=== PATIENT | male | born 1960 | race Caucasian/White ===

== ENCOUNTER 2019-04-03 01:16 | Emergency (ER) | payer MEDICAID, OTHER, SELFPAY ==
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
[2019-04-03] MEDS ORDERED: Sodium Chloride 0.9% 1000 ML 1,000 ML IV STA (01:47)
[2019-04-03] MEDS ORDERED: Sodium Chloride 0.9% 1000 ML 1,000 ML ONE (02:12)
[2019-04-03 02:34] LABS: BASOPHIL % 0.2 % (0.0-0.4); Basophil (Absolute #) 0.03 (0-0.4); Eosinophil % 0.3 % (0.00-5.0); Eosinophil (Absolute #) 0.04 (0-0.5); Hematocrit 40.9 % (42-50); Lymphocyte (Absolute #) 2.47 (1.0-4.6); Lymphocytes % 18.3 % (24.0-44.0); Mean Cell Volume 93.6 fl (78-100); Mean Corpuscular Hgb Concent. 34.2 g/dl (32-36); Mean Platelet Volume 10.5 fl (6-9.5); Monocyte (Absolute #) 0.97 (0.0-1.3); Monocytes % 7.2 % (0.0-12.0); Platelet Count 269 K/mm3 (150-450); Red Blood Count 4.37 M/mm3 (4.1-5.6); Red Cell Distribution Width 13.2 % (11.5-14.0); White Blood Count 13.5 K/mm3 (4.0-10.5)
[2019-04-03 02:52] LABS: ANION GAP 18.4 MEQ/L (5-15); BLOOD UREA NITROGEN 10 mg/dL (9-20); CHLORIDE 104 mmol/L (98-107); Calcium 8.7 mg/dL (8.4-10.2); Carbon Dioxide 21 mmol/L (22-30); Glucose 118 mg/dL (74-106); Potassium 3.6 mmol/L (3.5-5.1); SODIUM 139 mmol/L (137-145)
[2019-04-03 03:09] VITALS: O2SAT 98
[2019-04-03] MEDS ORDERED: Adacel Vial IM ONE ×2 (03:09→03:12)
[2019-04-03 03:15] VITALS: BP 125/93; PULSE 96
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
== END 2019-04-03 03:28 | disposition home or self-care (01) ==
LOC: ED 01:16
DX: S01.01XA Laceration without foreign body of scalp, initial encounter (principal); S09.90XA Unspecified injury of head, initial encounter; V98.8XXA Other specified transport accidents, initial encounter; S80.212A Abrasion, left knee, initial encounter; S80.211A Abrasion, right knee, initial encounter
CPT/HCPCS: 12001; 36000; 36415; 70450; 72125; 80048; 85025; 90471; 90715; 96360; 99284

== ENCOUNTER 2019-04-11 08:34 | Emergency (ER) | payer MEDICAID ==
[2019-04-11 08:54] VITALS: BP 142/92; PULSE 62; O2SAT 96
--- NOTE | 2019-04-11 08:56 | ERPHSYRPT ---
- History of Present Illness Time Seen by Provider: 04/11/19 08:45 Source: patient Exam Limitations: no limitations Patient Subjective Stated Complaint: pt here to have amie removed today, he states they where placed on 04/03. Triage Nursing Assessment: pt has amie placed to left side of head. wound in tact in tact with amie in place, no drainage noted Allergies/Adverse Reactions: penicillin G Allergy (Intermediate, Verified 04/11/19 08:54) Rash Home Medications: No Reportable Medications [No Reported Medications] 04/11/19 [History] Hx Tetanus, Diphtheria Vaccination/Date Given: No Hx Influenza Vaccination/Date Given: No Hx Pneumococcal Vaccination/Date Given: No Immunizations Up to Date: No - Past Medical History Pertinent Past Medical History: Yes Neurological History: No Pertinent History ENT History: No Pertinent History Cardiac History: Hypertension Respiratory History: No Pertinent History, Tuberculosis, Other Endocrine Medical History: No Pertinent History Musculoskeletal History: Arthritis, Degenerative Disk Disease GI Medical History: No Pertinent History History: No Pertinent History Psycho-Social History: No Pertinent History Male Reproductive Disorders: No Pertinent History Other Medical History: back pain. tb is dormant - Past Surgical History Past Surgical History: Yes Neuro Surgical History: No Pertinent History Cardiac: No Pertinent History Respiratory: No Pertinent History Gastrointestinal: No Pertinent History Genitourinary: No Pertinent History Musculoskeletal: Orthopedic Surgery Male Surgical History: No Pertinent History Other Surgical History: lt thumb - Social History Smoking Status: Current every day smoker How long have you smoked: yrs Exposure to second hand smoke: Yes Drug Use: none Patient Lives Alone: Yes - Nursing Vital Signs Nursing Vital Signs: Initial Vital Signs Temperature 97.0 F 04/11/19 08:44 Pulse Rate 62 04/11/19 08:44 Respiratory Rate 16 04/11/19 08:44 Blood Pressure 142/92 04/11/19 08:44 O2 Sat by Pulse Oximetry 96 04/11/19 08:44 Pain Scale Pain Intensity 0 - Physical Exam SpO2: 96 - Course Nursing assessment & vital signs reviewed: Yes - Progress Progress: unchanged Progress Note: 04/11/19 08:59 amie removed without problems,pt has been stable. Counseled pt/family regarding: diagnosis, need for follow-up - Departure Departure Disposition: Home Clinical Impression: Scalp laceration Qualifiers: Encounter type: initial encounter Qualified Code(s): S01.01XA - Laceration without foreign body of scalp, initial encounter Condition: Stable Critical Care Time: No Referrals: SHRAVAN OJEDA [Primary Care Provider] - Instructions: Laceration Repair With Amie (DC), Closed Head Injury (DC) Additional Instructions: Return if severe headaches, dizziness, vomiting, lethargy !
== END 2019-04-11 09:16 | disposition home or self-care (01) ==
LOC: ED 08:34
DX: S01.01XD Laceration without foreign body of scalp, subsequent encounter (principal)
CPT/HCPCS: 99283

== ENCOUNTER 2019-05-07 03:14 | Emergency (ER) | payer MEDICAID ==
--- NOTE | 2019-05-07 03:46 | ERPHSYRPT ---
- History of Present Illness Time Seen by Provider: 05/07/19 03:36 Source: patient Exam Limitations: no limitations Patient Subjective Stated Complaint: pt states he has been having pain in his rt upper arm for 2 days. rates 07/31. denies injury. Triage Nursing Assessment: pt alert and oriented, answers questions approp. pt ambulatory with steady gait ntoed. respirations nonlabored with lungs cta. cap refill and radial pulse to rt arm wnl. Physician History: 58-year-old white male with history of arthritis, degenerative disc disease, chronic back pain who has had tuberculosis which was treated in the past. Patient arrives with complaint of pain in his right arm and shoulder symptoms going on for 2 days he states he has pain with movement of the right shoulder and with flexing the biceps. He denies any injury is not short of breath he has no chest pain. Past medical history includes arthritis, degenerative disc disease, tuberculosis , chronic back pain. Past surgical history includes left thumb surgery. Social history positive for tobacco use denies alcohol or illicit drugs Occurred: days ago (2 days ago) Method of Injury: unknown Quality: constant, aching Severity of Pain-Max: moderate Severity of Pain-Current: moderate Extremities Pain Location: shoulder: right, arm: right Modifying Factors: Improves With: movement Associated Symptoms: none Allergies/Adverse Reactions: penicillin G Allergy (Intermediate, Verified 05/07/19 03:37) Rash Hx Tetanus, Diphtheria Vaccination/Date Given: Yes Hx Influenza Vaccination/Date Given: No Hx Pneumococcal Vaccination/Date Given: No Immunizations Up to Date: Yes - Review of Systems Constitutional: No Fever, No Chills Eyes: No Symptoms Ears, Nose, & Throat: No Symptoms Respiratory: No Cough, No Dyspnea Cardiac: No Chest Pain, No Edema, No Syncope Abdominal/Gastrointestinal: No Abdominal Pain, No Nausea, No Vomiting, No Diarrhea Genitourinary Symptoms: No Dysuria Musculoskeletal: Other (pain in right shoulder and right arm with movement of shoulder or right arm) Skin: No Symptoms, No Rash Neurological: No Dizziness, No Focal Weakness, No Sensory Changes Psychological: No Symptoms Endocrine: No Symptoms All Other Systems: Reviewed and Negative - Past Medical History Pertinent Past Medical History: Yes Neurological History: No Pertinent History ENT History: No Pertinent History Cardiac History: Hypertension Respiratory History: No Pertinent History, Tuberculosis, Other Endocrine Medical History: No Pertinent History Musculoskeletal History: Arthritis, Degenerative Disk Disease GI Medical History: No Pertinent History History: No Pertinent History Psycho-Social History: No Pertinent History Male Reproductive Disorders: No Pertinent History Other Medical History: back pain. tb is dormant - Past Surgical History Past Surgical History: Yes Neuro Surgical History: No Pertinent History Cardiac: No Pertinent History Respiratory: No Pertinent History Gastrointestinal: No Pertinent History Genitourinary: No Pertinent History Musculoskeletal: Orthopedic Surgery Male Surgical History: No Pertinent History Other Surgical History: lt thumb, cyst removed from back - Social History Smoking Status: Current every day smoker How long have you smoked: yrs Exposure to second hand smoke: Yes Drug Use: none Patient Lives Alone: Yes - Nursing Vital Signs Nursing Vital Signs: Initial Vital Signs Temperature 97.8 F 05/07/19 03:28 Pulse Rate 70 05/07/19 03:28 Respiratory Rate 16 05/07/19 03:28 Blood Pressure 156/100 05/07/19 03:28 O2 Sat by Pulse Oximetry 100 05/07/19 03:28 Pain Scale Pain Intensity 9 - Physical Exam General Appearance: mild distress, alert Eyes, Ears, Nose, Throat Exam: moist mucous membranes Neck Exam: non-tender, supple Cardiovascular/Respiratory Exam: chest non-tender, normal breath sounds, regular rate/rhythm, no respiratory distress Abdominal Exam: non-tender, No guarding Back Exam: normal inspection, No vertebral tenderness Shoulder Exam: No normal inspection (right shoulder tender with palpation laterally, decreased range of motion right shoulder secondary to pain, right upper arm tender with palpation laterally) Elbow/Forearm Exam: No normal inspection (pain right arm with movement of right elbow decreased range of motion right elbow) Wrist Exam: normal inspection, non-tender, no evidence of injury, normal ROM Hand Exam: normal inspection, non-tender, no evidence of injury, normal ROM Neuro/Tendon Exam: normal sensation, normal motor functions Mental Status Exam: alert, oriented x 3, cooperative Skin Exam: normal color, warm, dry SpO2 Interpretation: normal (100%) SpO2: 100 - Course Nursing assessment & vital signs reviewed: Yes - Radiology Exams Right Humerus X-ray Interpretation: Interpreted by me (no fractures no subluxation) Right Shoulder X-ray Interpretation: Interpreted by me (Arthritis humeral head no fractures no subluxation) Ordered Tests: Active Orders 24 hr Category Date Time Status Sling Application STAT Care 05/07/19 04:16 Active HUMERUS Stat Exams 05/07/19 03:41 Taken SHOULDER Stat Exams 05/07/19 03:41 Taken Medication Summary Discontinued Medications Generic Name Dose Route Start Last Admin Trade Name Taylor PRN Reason Stop Dose Admin Hydrocodone Bitart/Acetaminophen 2 tab 05/07/19 04:19 05/07/19 04:32 Wallace 5/325 Mg PO 05/07/19 04:20 2 tab SENT HOME W/ PATIENT ONE Administration Hydrocodone Bitart/Acetaminophen Confirm 05/07/19 04:27 Wallace 5/325 Mg Administered 05/07/19 04:28 Dose 2 tab .ROUTE .STK-MED ONE Ketorolac Tromethamine 60 mg 05/07/19 04:21 05/07/19 04:32 Toradol 30 Mg Injection IM 05/07/19 04:22 60 mg STAT ONE Administration Ketorolac Tromethamine Confirm 05/07/19 04:30 Toradol 30 Mg Injection Administered 05/07/19 04:31 Dose 60 mg .ROUTE .STK-MED ONE - Progress Progress: improved Progress Note: 05/07/19 04:20 Patient's x-ray right shoulder showed arthritis of the humeral head no subluxation or dislocation or fractures. X-ray right humerus no fractures no subluxation. Patient given Toradol 60 mg IM. Sling will be placed. Will write for Wallace for pain. Patient is to his right shoulder 24-48 hours followup with local physician Magalie as prescribed also can take Advil every 6 hours as needed. Return for acute distress or for severe symptoms. - Departure Departure Disposition: Home Clinical Impression: Right arm pain, Arthritis of right shoulder region Right shoulder pain Qualifiers: Chronicity: acute Qualified Code(s): M25.511 - Pain in right shoulder Condition: Fair Critical Care Time: No Referrals: DOCTOR,NO FAMILY [Primary Care Provider] - Additional Instructions: Return home. Ice to right shoulder 24-48 hours. May wear sling 48-72 hours. Followup with your family (list) you will need to call and arrange a followup appointment Magalie as prescribed. Advil every 6 hours as needed for pain. Return for acute distress or for severe symptoms Prescriptions: Hydrocodone/APAP 5-325 Tab^^^ [Wallace 5-325 Tablet^^^] 1 tab PO Q6HPRN PRN #10 tablet MDD 6 PRN Reason: right shoulder pain
[2019-05-07] MEDS ORDERED: NORCO 5/325 MG PO ONE (04:19)
[2019-05-07] MEDS ORDERED: TORAdol 30 mg Injection IM ONE (04:21)
[2019-05-07] MEDS ORDERED: NORCO 5/325 MG ONE (04:27)
[2019-05-07] MEDS ORDERED: TORAdol 30 mg Injection ONE (04:30)
[2019-05-07 04:39] VITALS: BP 148/84; PULSE 67
[2019-05-07 04:41] VITALS: O2SAT 100
--- NOTE | 2019-05-07 08:39 | XRAY ---
Indication: Pain. No known injury. Comparison: None 2 views of the right humerus demonstrates moderate AC degenerative arthropathy with inferior spurring, mild glenohumeral degenerative arthropathy with tiny subcortical cysts, and lateral epicondyle heterotopic ossifications. No other bony, articular, or soft tissue abnormalities.
--- NOTE | 2019-05-07 08:39 | XRAY ---
Indication: Pain. No known injury. Comparison: None 3 views of the right shoulder demonstrates moderate AC degenerative arthropathy with inferior spurring, mild glenohumeral degenerative arthropathy with tiny subcortical cysts, and multilevel thoracic endplate spurring. No other bony, articular, or soft tissue abnormalities.
== END 2019-05-07 04:55 | disposition home or self-care (01) ==
LOC: ED 03:14
DX: M79.601 Pain in right arm (principal); M19.011 Primary osteoarthritis, right shoulder; M25.511 Pain in right shoulder
CPT/HCPCS: 73030; 73060; 96372; 99284; J1885; A9270-GY

== ENCOUNTER 2019-12-31 16:25 | Emergency (ER) | payer MEDICAID, OTHER ==
[2019-12-31 16:46] VITALS: BP 159/103; PULSE 93; O2SAT 97
[2019-12-31] MEDS ORDERED: TORAdol 30 mg Injection IM ONE (16:55)
[2019-12-31] MEDS ORDERED: TORAdol 30 mg Injection ONE (17:51)
--- NOTE | 2019-12-31 18:15 | ERPHSYRPT ---
- History of Present Illness Time Seen by Provider: 12/31/19 16:45 Source: patient Exam Limitations: no limitations Patient Subjective Stated Complaint: Pt states that on 12/24/2019 he was walking down some stairs and was on a turn when it felt as if he popped his knee out of place, left knee and lower extremity is swollen, leg is orangish in color, pt states that it tingles like it is asleep Triage Nursing Assessment: Pt brought to the ER by a friend, pt walking with a limp, hypertensive, rates pain 10/10, left knee and lower leg swollen Physician History: Patient is a 59-year-old male presents to our ED for evaluation of left knee pain. Patient states that he twisted his left knee approximately 1 week ago. Patient felt his kneecap shift. Patient's knee has been sore for the past week. Patient describes knee swelling. Pain worse with weightbearing. Pain improved with rest. Pain is well localized. No radiation. No other injuries reported. Patient voices no other complaints at this time. Method of Injury: twisted Occurred: last week Quality: constant Severity of Pain-Max: moderate Severity of Pain-Current: moderate Lower Extremities Pain: knee: left Modifying Factors: Improves With: movement Associated Symptoms: popping sensation, No dizzy, No seizure Allergies/Adverse Reactions: penicillin G Allergy (Intermediate, Verified 12/31/19 16:46) Rash Home Medications: No Reportable Medications [No Reported Medications] 12/31/19 [History] Hx Tetanus, Diphtheria Vaccination/Date Given: Yes Hx Influenza Vaccination/Date Given: No Hx Pneumococcal Vaccination/Date Given: No - Review of Systems Constitutional: No Fever, No Chills Eyes: No Symptoms Ears, Nose, & Throat: No Symptoms Respiratory: No Symptoms, No Cough, No Dyspnea Cardiac: No Symptoms, No Chest Pain, No Edema, No Syncope Abdominal/Gastrointestinal: No Symptoms, No Abdominal Pain, No Nausea, No Vomiting, No Diarrhea Genitourinary Symptoms: No Symptoms, No Dysuria Musculoskeletal: No Symptoms, No Back Pain, No Neck Pain Skin: No Symptoms, No Rash Neurological: No Symptoms, No Dizziness, No Focal Weakness, No Sensory Changes Psychological: No Symptoms Endocrine: No Symptoms Hematologic/Lymphatic: No Symptoms Immunological/Allergic: No Symptoms All Other Systems: Reviewed and Negative - Past Medical History Pertinent Past Medical History: Yes Neurological History: No Pertinent History ENT History: No Pertinent History Cardiac History: Hypertension Respiratory History: No Pertinent History, Tuberculosis, Other Endocrine Medical History: No Pertinent History Musculoskeletal History: Arthritis, Degenerative Disk Disease GI Medical History: No Pertinent History History: No Pertinent History Psycho-Social History: No Pertinent History Male Reproductive Disorders: No Pertinent History Other Medical History: back pain. tb is dormant - Past Surgical History Past Surgical History: Yes Neuro Surgical History: No Pertinent History Cardiac: No Pertinent History Respiratory: No Pertinent History Gastrointestinal: No Pertinent History Genitourinary: No Pertinent History Musculoskeletal: Orthopedic Surgery Male Surgical History: No Pertinent History Other Surgical History: lt thumb, cyst removed from back - Social History Smoking Status: Current every day smoker How long have you smoked: yrs Exposure to second hand smoke: Yes Drug Use: none Patient Lives Alone: Yes - Nursing Vital Signs Nursing Vital Signs: Initial Vital Signs Temperature 97.8 F 12/31/19 16:34 Pulse Rate 93 H 12/31/19 16:34 Blood Pressure 159/103 12/31/19 16:34 O2 Sat by Pulse Oximetry 97 12/31/19 16:34 Pain Scale Pain Intensity 10 - Physical Exam General Appearance: alert Eyes, Ears, Nose, Throat Exam: moist mucous membranes Neck Exam: non-tender, supple Cardiovascular/Respiratory Exam: chest non-tender, normal breath sounds, regular rate/rhythm, no respiratory distress Gastrointestinal/Abdominal Exam: non-tender, guarding Back Exam: normal inspection, No vertebral tenderness Knees Exam: left knee: normal range of motion, deformity, pain, soft tissue tenderness (Left knee is swollen and tender to palpation mostly anteromedially. No open or draining lesions. Extremities neurovascular intact distally. Compartments are soft. PT DP pulse palpable.) DTR - Lower Extremities Exam: knee (R): 1+, knee (L): 1+ Neuro/Tendon Exam: normal sensation, normal motor functions Mental Status Exam: alert, oriented x 3, cooperative Skin Exam: normal color, warm, dry SpO2 Interpretation: normal SpO2: 97 O2 Delivery: Room Air - Course Nursing assessment & vital signs reviewed: Yes - Radiology Exams Knee X-ray Interpretation: Interpreted by me (No fractures or dislocations.) - Radiology Ultrasound Exam Venous Lower Extremity Ultrasound: negative (No DVT left lower extremity.) Ordered Tests: Active Orders 24 hr Category Date Time Status KNEE (3 VIEWS) Stat Exams 12/31/19 16:54 Taken VENOUS UNILAT/LIMITED EXTREMIT [US] Stat Exams 12/31/19 16:56 Ordered Medication Summary Discontinued Medications Generic Name Dose Route Start Last Admin Trade Name Taylor PRN Reason Stop Dose Admin Ketorolac Tromethamine 60 mg 12/31/19 16:55 12/31/19 17:54 Toradol 30 Mg Injection IM 12/31/19 16:56 60 mg STAT ONE Administration Ketorolac Tromethamine Confirm 12/31/19 17:51 Toradol 30 Mg Injection Administered 12/31/19 17:52 Dose 60 mg .ROUTE .STK-MED ONE - Progress Progress: improved Progress Note: 12/31/19 18:20 Patient reassessed. Pain improved. Crutches provided. Patient referred to orthopedic clinic. Patient follow-up with orthopedic clinic within 48 hours for reevaluation. Counseled pt/family regarding: diagnosis, need for follow-up, rad results - Departure Departure Disposition: Home Clinical Impression: Knee sprain Condition: Good Critical Care Time: No Referrals: DOCTOR,NO FAMILY [Primary Care Provider] - Additional Instructions: Discharge/Care Plan MARÍALIZZ KIM was seen on 12/31/19 in the Emergency Room. The patient was counseled regarding Diagnosis,Lab results, Imaging studies, need for follow up and when to return to the Emergency Room. Prescriptions given: Discharge Note I have spoken with the patient and/or caregivers. I have explained the patient' s condition, diagnosis and treatment plan based on the information available to me at this time. I have answered the patient's and/or caregiver's questions and addressed any concerns. The patient and/or caregivers have as good understanding of the patient's diagnosis, condition and treatment plan as can be expected at this point. The vital signs have been stable. The patient's condition is stable and appropriate for discharge from the emergency department. The patient will pursue further outpatient evaluation with the primary care physician or other designated or consulting physician as outlined in the discharge instructions. The patient and/or caregivers are agreeable to this plan of care and follow-up instructions have been explained in detail. The patient and/or caregivers have received these instruction. The patient/and or caregivers are aware that any significant change in condition or worsening of symptoms should prompt an immediate return to this or the closest emergency department or call 911. Outpatient Orders: Ortho Referral Time Frame: 1 Day, Location: ORTHO CLINIC
--- NOTE | 2020-01-01 08:47 | XRAY ---
Indication: Pain. Comparison: July 23, 2016. 3 views of the left knee demonstrates new tiny patella spurring and nonspecific effusion. Stable fabella. No other bony, articular, or soft tissue abnormalities.
--- NOTE | 2020-01-01 08:50 | XRAY ---
Indication: DVT. Two-dimensional sonogram and color Doppler imaging of the major venous vessels of the left leg was performed. Comparison: None No thrombus seen in the examined deep venous vessels of the left leg including greater saphenous vein. Veins demonstrate normal compressibility. Venous waveforms are normal with and without augmentation. Impression: Left leg negative for DVT. Comment: Preliminary report was given.
== END 2019-12-31 18:55 | disposition home or self-care (01) ==
LOC: ED 16:25
DX: S83.92XA Sprain of unspecified site of left knee, initial encounter (principal); X50.0XXA Overexertion from strenuous movement or load, initial encounter; M25.562 Pain in left knee; M79.89 Other specified soft tissue disorders; I10 Essential (primary) hypertension
CPT/HCPCS: 73562; 93971; 96372; 99284; J1885

== ENCOUNTER 2021-11-10 07:48 | Emergency (ER) | payer OTHER ==
--- NOTE | 2021-11-10 07:59 | ERPHSYRPT ---
- History of Present Illness Time Seen by Provider: 11/10/21 07:59 Source: patient Exam Limitations: no limitations Physician History: This is a 61-year-old white male who is right-handed and presents with left elbow pain, swelling and redness that began approximately 2 days ago and has worsened. Patient denies any kind of trauma. He is not diabetic. He did not notice whether there was a insect bite. He has never had anything like this before. In addition he has left hand Dupuytren's contractures that he would like evaluated. Patient has not had any fevers or chills. Occurred: days ago (2) Quality: aching, throbbing Severity of Pain-Max: moderate Severity of Pain-Current: moderate Extremities Pain Location: elbow: left Modifying Factors: Improves With: movement Associated Symptoms: No chest discomfort, No chest pain, No fever, No vomiting Allergies/Adverse Reactions: penicillin G Allergy (Intermediate, Verified 11/10/21 07:53) Rash Home Medications: Lisinopril 20 mg [Zestril 20 MG] 1 tab PO DAILY 11/10/21 [History] Hx Tetanus, Diphtheria Vaccination/Date Given: Yes Hx Influenza Vaccination/Date Given: No Hx Pneumococcal Vaccination/Date Given: No Travel Risk - International Travel Have you traveled outside of the country in past 3 weeks: No - Coronavirus Screening Are you exhibiting any of the following symptoms?: No Close contact with a COVID-19 positive Pt in past 14-21 Days: No - Review of Systems Constitutional: No Symptoms Eyes: No Symptoms Ears, Nose, & Throat: No Symptoms Respiratory: No Symptoms Cardiac: No Symptoms Abdominal/Gastrointestinal: No Symptoms Genitourinary Symptoms: No Symptoms Musculoskeletal: Joint Pain (Left elbow) Skin: Other (Localized circular area of cellulitis left elbow) Neurological: No Symptoms Psychological: No Symptoms Endocrine: No Symptoms Hematologic/Lymphatic: No Symptoms Immunological/Allergic: No Symptoms All Other Systems: Reviewed and Negative - Past Medical History Pertinent Past Medical History: Yes Neurological History: No Pertinent History ENT History: No Pertinent History Cardiac History: Hypertension Respiratory History: No Pertinent History, Tuberculosis, Other Endocrine Medical History: No Pertinent History Musculoskeletal History: Arthritis, Degenerative Disk Disease GI Medical History: No Pertinent History History: No Pertinent History Psycho-Social History: No Pertinent History Male Reproductive Disorders: No Pertinent History Other Medical History: back pain. tb is dormant - Past Surgical History Past Surgical History: Yes Neuro Surgical History: No Pertinent History Cardiac: No Pertinent History Respiratory: No Pertinent History Gastrointestinal: No Pertinent History Genitourinary: No Pertinent History Musculoskeletal: Orthopedic Surgery Male Surgical History: No Pertinent History Other Surgical History: lt thumb, cyst removed from back - Social History Smoking Status: Current every day smoker How long have you smoked: yrs Exposure to second hand smoke: Yes Drug Use: none Patient Lives Alone: Yes - Nursing Vital Signs Nursing Vital Signs: Initial Vital Signs Temperature 98.0 F 11/10/21 07:54 Pulse Rate 107 H 11/10/21 07:54 Respiratory Rate 18 11/10/21 07:54 Blood Pressure 163/106 11/10/21 07:54 O2 Sat by Pulse Oximetry 99 11/10/21 07:54 Pain Scale Pain Intensity 10 - Physical Exam General Appearance: no apparent distress, alert, anxiety Eyes, Ears, Nose, Throat Exam: normal ENT inspection, moist mucous membranes Cardiovascular/Respiratory Exam: chest non-tender, no respiratory distress Abdominal Exam: non-tender Back Exam: normal inspection, normal range of motion, No CVA tenderness, No vertebral tenderness Shoulder Exam: normal inspection, non-tender, no evidence of injury, normal ROM Elbow/Forearm Exam: soft tissue tenderness, swelling (Redness and warmth) Wrist Exam: normal inspection, non-tender, no evidence of injury, normal ROM Hand Exam: no evidence of injury (Patient has Dupuytren's contractures.) Neuro/Tendon Exam: normal sensation, normal motor functions, responds to pain Mental Status Exam: alert, oriented x 3, cooperative Skin Exam: normal color, warm, dry SpO2 Interpretation: normal O2 Delivery: Room Air - Course Nursing assessment & vital signs reviewed: Yes Ordered Tests: Medication Summary Discontinued Medications Generic Name Dose Route Start Last Admin Trade Name Freq PRN Reason Stop Dose Admin Ceftriaxone Sodium 1,000 mg 11/10/21 08:13 Ceftriaxone Sodium 1000 Mg Inj Vial IM 11/10/21 08:14 STAT ONE Methylprednisolone Sodium 0 mg 11/10/21 08:13 Succinate 125 mg/ Sterile IM 11/10/21 08:14 Water 2 ml STAT ONE - Progress Progress: unchanged Counseled pt/family regarding: diagnosis, need for follow-up - Departure Departure Disposition: Home Clinical Impression: Dupuytren's contracture of left hand, Cellulitis of left elbow Condition: Stable Critical Care Time: No Referrals: SHIVAM ORTEZ [Primary Care Provider] - Follow up/PCP as directed (Left elbow cellulitis. Patient also wants hand contractures evaluated and managed) Additional Instructions: Take medication as prescribed. Follow-up this morning or tomorrow morning at [facility] clinic here at [facility] for further evaluation and management Prescriptions: Hydrocodone/APAP 5/325 [[place] 5/325 mg] 1 each PO Q8H PRN PRN #6 tablet MDD 3 PRN Reason: Pain Ciprofloxacin [Cipro 500 MG] 500 mg PO BID #14 tablet Prednisone 10 mg [Deltasone 10 mg] 10 mg PO TID #12 tablet
[2021-11-10 08:00] VITALS: BP 163/106; PULSE 107; O2SAT 99
[2021-11-10] MEDS ORDERED: solu-MEDROL 125 MG, Sterile H2O 10 ml 2 ML IM ONE ×2 (08:13)
[2021-11-10] MEDS ORDERED: Rocephin 1000 MG INJ IM ONE (08:13)
[2021-11-10] MEDS ORDERED: solu-MEDROL ONE (08:19)
[2021-11-10] MEDS ORDERED: Rocephin 1000 MG INJ ONE (08:19)
[2021-11-10] MEDS ORDERED: Sterile H2O 10 ml IJ ONE (08:20)
[2021-11-10] MEDS ORDERED: XYLOCAINE 1% HCL 20 ML MDV ONE (08:20)
== END 2021-11-10 08:44 | disposition home or self-care (01) ==
LOC: ED 07:48
DX: L03.114 Cellulitis of left upper limb (principal); M72.0 Palmar fascial fibromatosis [Dupuytren]; I10 Essential (primary) hypertension; Z72.0 Tobacco use; Z79.891 Long term (current) use of opiate analgesic; Z79.52 Long term (current) use of systemic steroids
CPT/HCPCS: 96372; 99283; J0696; J2930

== ENCOUNTER 2022-10-26 11:00 | Inpatient (IN) | payer OTHER ==
[2022-10-26] MEDS ORDERED: Hydromorphone 1 mg/ml Injection IV ONE ×2 (11:27→13:11)
[2022-10-26] MEDS ORDERED: PROTONIX 40 MG IV IV ONE ×2 (11:27→11:37)
[2022-10-26] MEDS ORDERED: Sodium Chloride 0.9% 1000 ML 1,000 ML IV STA (11:27)
[2022-10-26] MEDS ORDERED: Zofran 4 MG/2 ML VIAL IV ONE (11:27)
[2022-10-26] MEDS ORDERED: Zofran 4 MG/2 ML VIAL ONE (11:36)
[2022-10-26] MEDS ORDERED: Sodium Chloride 0.9% 1000 ML 1,000 ML ONE (11:37)
[2022-10-26] MEDS ORDERED: Hydromorphone 1 mg/ml Injection ONE ×2 (11:37→13:49)
[2022-10-26 11:45] LABS: BASOPHIL % 0.2 % (0.0-0.4); Basophil (Absolute #) 0.03 x10^3/uL (0-0.4); Eosinophil (Absolute #) 0 x10^3/uL (0-0.5); Hematocrit 48.5 % (42-50); Hemoglobin 16.4 g/dL (12.5-18.0); IMMATURE GRAN # 0.07 x10^3u/L (0.00-0.03); IMMATURE GRAN % 0.4 % (0.00-0.4); Lymphocyte (Absolute #) 1.28 x10^3/uL (1.0-4.6); Lymphocytes % 6.4 % (24.0-44.0); Mean Cell Volume 93.3 fL (78-100); Mean Corpuscular Hemoglobin 31.5 pg (26-32); Mean Corpuscular Hgb Concent. 33.8 g/dL (32-36); Mean Platelet Volume 9.8 fL (7.5-11.0); Monocyte (Absolute #) 0.88 x10^3/uL (0.0-1.3); Monocytes % 4.4 % (0.0-12.0); Neutrophil % 88.6 % (36.0-66.0); Platelet Count 341 x10^3/uL (150-450); Red Cell Distribution Width 12.3 % (11.5-14.0)
--- NOTE | 2022-10-26 11:55 | ERPHSYRPT ---
- History of Present Illness Time Seen by Provider: 10/26/22 11:04 Historian: patient Exam Limitations: no limitations Patient Subjective Stated Complaint: Pt c/o of upper epigastric pain that began last night in the lower sternum area, pt thought it was heartburn and it has continued to get worse today and has caused vomiting this morning Triage Nursing Assessment: Pt brought to the ER by his friend, hypertensive, rates pain in upper abdomen as 10/10, unable to get comfortable, denies pain in the back, last intake and bowel movement last night, vomited this morning, abdomen distended and rigid, denies numbness in legs or arms, pulses normal, skin n/w/d Physician History: 62 years old male with a history of hypertension, questionable history of GERD presented in the ER with chief complaint of epigastric pain started last but with gradually worsening this morning and more in the periumbilical area 10/10 intensity, nonradiating, associated with nausea and vomiting. No chest pain palpitations or shortness of breath. Timing/Duration: yesterday, gradual onset, worse Activities at Onset: rest Quality: sharpness Abdominal Pain Onset Location: epigastric, periumbilical Severity of Pain-Max: severe Severity of Pain-Current: severe Modifying Factors: Improves With: nothing Associated Symptoms: nausea, vomiting Previous symptoms: no prior history Allergies/Adverse Reactions: penicillin G Allergy (Intermediate, Verified 10/26/22 11:37) Rash Home Medications: Lisinopril 20 mg [Zestril 20 MG] 1 tab PO DAILY 11/10/21 [History] ALPRAZolam [Alprazolam] 0.5 mg PO DAILY 10/26/22 [History] Allopurinol 100 mg [Zyloprim 100 mg] 100 mg PO BID 10/26/22 [History] Chlorthalidone 25 mg PO DAILY 10/26/22 [History] Hydrocodone/Acetaminophen [Hydrocodone-Acetamin 7.5-325] 1 each PO BID 10/26/22 [History] Metoprolol Succinate 50 mg [Toprol Xl 50 MG] 50 mg PO DAILY 10/26/22 [History] Tamsulosin HCl 0.4 mg [Flomax 0.4 MG] 0.4 mg PO DAILY 01/05/23 [History] Hx Tetanus, Diphtheria Vaccination/Date Given: Yes Hx Influenza Vaccination/Date Given: No Hx Pneumococcal Vaccination/Date Given: No Travel Risk - International Travel Have you traveled outside of the country in past 3 weeks: No - Coronavirus Screening Are you exhibiting any of the following symptoms?: Yes Symptoms: Vomiting/Diarrhea Close contact with a COVID-19 positive Pt in past 14-21 Days: No - Vaccine Status Have you recieved a Covid-19 vaccination: Yes [employer]: Moderna - Vaccination Dates Date of 2cond Vaccination (if applicable): 03/05/2021 - Review of Systems Constitutional: No Symptoms Eyes: No Symptoms Ears, Nose, & Throat: No Symptoms Respiratory: No Symptoms Cardiac: No Symptoms Abdominal/Gastrointestinal: Abdominal Pain, Nausea, Vomiting Genitourinary Symptoms: No Symptoms Musculoskeletal: No Symptoms Skin: No Symptoms Neurological: No Symptoms Psychological: No Symptoms Endocrine: No Symptoms Hematologic/Lymphatic: No Symptoms Immunological/Allergic: No Symptoms - Past Medical History Pertinent Past Medical History: Yes Neurological History: No Pertinent History ENT History: No Pertinent History Cardiac History: Hypertension Respiratory History: No Pertinent History, Tuberculosis, Other Endocrine Medical History: No Pertinent History Musculoskeletal History: Arthritis, Degenerative Disk Disease GI Medical History: No Pertinent History History: No Pertinent History Psycho-Social History: No Pertinent History Male Reproductive Disorders: No Pertinent History Other Medical History: back pain. tb is dormant - Past Surgical History Past Surgical History: Yes Neuro Surgical History: No Pertinent History Cardiac: No Pertinent History Respiratory: No Pertinent History Gastrointestinal: No Pertinent History Genitourinary: No Pertinent History Musculoskeletal: Orthopedic Surgery Male Surgical History: No Pertinent History Other Surgical History: lt thumb, cyst removed from back - Social History Smoking Status: Current every day smoker How long have you smoked: yrs Exposure to second hand smoke: Yes Drug Use: none Patient Lives Alone: Yes - Nursing Vital Signs Nursing Vital Signs: Initial Vital Signs Temperature 97.1 F 10/26/22 11:02 Pulse Rate 99 H 10/26/22 11:02 Blood Pressure 189/130 10/26/22 11:02 O2 Sat by Pulse Oximetry 97 10/26/22 11:02 Pain Scale Pain Intensity 10 - Physical Exam General Appearance: no apparent distress, alert Eye Exam: PERRL/EOMI, eyes nml inspection Ears, Nose, Throat Exam: normal ENT inspection, TMs normal, pharynx normal, moist mucous membranes Neck Exam: normal inspection, non-tender, supple, full range of motion Respiratory Exam: normal breath sounds, lungs clear Cardiovascular Exam: regular rate/rhythm, normal heart sounds Gastrointestinal/Abdomen Exam: tenderness, distention (Generalized more in the upper abdomen), guarding (Upper abdomen), No normal bowel sounds (Hypoactive) Back Exam: normal inspection Extremity Exam: normal inspection, normal range of motion Neurologic Exam: alert, oriented x 3, normal mood/affect Skin Exam: normal color SpO2 Interpretation: normal SpO2: 97 O2 Delivery: Room Air - Course EKG Interpreted by Me: RATE (94), Sinus Rhythm, NORMAL AXIS, NORMAL INTERVALS, NORMAL QRS Ordered Tests: Active Orders 24 hr Category Date Time Status EKG-ER Only STAT Care 10/26/22 11:27 Active IV Insertion STAT Care 10/26/22 11:27 Active NPO (ED) STAT Care 10/26/22 11:27 Active ABDOMEN AND PELVIS W CONTRAST [CT] Stat Exams 10/26/22 13:38 Completed AMYLASE Stat Lab 10/26/22 11:45 Completed CBC W DIFF Stat Lab 10/26/22 11:45 Completed CMP Stat Lab 10/26/22 11:45 Completed LIPASE Stat Lab 10/26/22 11:45 Completed Lactic Acid Stat Lab 10/26/22 11:45 Completed TROPONIN Q4H Lab 10/26/22 11:45 Completed TROPONIN Q4H Lab 10/26/22 15:30 Ordered TROPONIN Q4H Lab 10/26/22 19:30 Ordered UA W/RFX UR CULTURE Stat Lab 10/26/22 11:27 Ordered Medication Summary Generic Name Dose Route Start Last Admin Trade Name Freq PRN Reason Stop Dose Admin Sodium Chloride 1,000 mls @ 125 mls/hr 10/26/22 14:00 10/26/22 14:03 Sodium Chloride 0.9% 1000 Ml IV 11/25/22 13:59 125 mls/hr .Q8H MITCHEL Administration Discontinued Medications Generic Name Dose Route Start Last Admin Trade Name Freq PRN Reason Stop Dose Admin Hydromorphone HCl 1 mg 10/26/22 11:27 10/26/22 11:51 Hydromorphone 1 Mg/1ml Inj 1 Mg/Ml Syringe IV 10/26/22 11:28 1 mg STAT ONE Administration Hydromorphone HCl Confirm 10/26/22 11:37 Hydromorphone 1 Mg/1ml Inj 1 Mg/Ml Syringe Administered 10/26/22 11:38 Dose 1 mg .ROUTE .STK-MED ONE Hydromorphone HCl 1 mg 10/26/22 13:11 10/26/22 13:52 Hydromorphone 1 Mg/1ml Inj 1 Mg/Ml Syringe IV 10/26/22 13:12 1 mg STAT ONE Administration Hydromorphone HCl Confirm 10/26/22 13:49 Hydromorphone 1 Mg/1ml Inj 1 Mg/Ml Syringe Administered 10/26/22 13:50 Dose 1 mg .ROUTE .STK-MED ONE Sodium Chloride 1,000 mls @ 999 mls/hr 10/26/22 11:27 10/26/22 13:12 Sodium Chloride 0.9% 1000 Ml IV 10/26/22 12:27 Infused .Q1H1M STA Infusion Sodium Chloride Confirm 10/26/22 11:37 Sodium Chloride 0.9% 1000 Ml Administered 10/26/22 11:38 Dose 1,000 mls @ ud .ROUTE .STK-MED ONE Ondansetron HCl 4 mg 10/26/22 11:27 10/26/22 11:42 Ondansetron Hcl 4 Mg/2 Ml Vial IV 10/26/22 11:28 4 mg STAT ONE Administration Ondansetron HCl Confirm 10/26/22 11:36 Ondansetron Hcl 4 Mg/2 Ml Vial Administered 10/26/22 11:37 Dose 4 mg .ROUTE .STK-MED ONE Pantoprazole Sodium 40 mg 10/26/22 11:27 10/26/22 11:47 Pantoprazole 40 Mg Vial IV 10/26/22 11:28 40 mg STAT ONE Administration Pantoprazole Sodium Confirm 10/26/22 11:37 Pantoprazole 40 Mg Vial Administered 10/26/22 11:38 Dose 40 mg IV .STK-MED ONE Lab/Rad Data: Laboratory Result Diagrams 10/26/22 11:45 10/26/22 11:45 Laboratory Results 10/26/22 10/26/22 10/26/22 Range/Units 11:45 11:45 11:45 WBC (4.0-10.5) x10^3/uL RBC (4.1-5.6) x10^6/uL Hgb (12.5-18.0) g/dL Hct (42-50) % MCV (78-100) fL MCH (26-32) pg MCHC (32-36) g/dL RDW (11.5-14.0) % Plt Count (150-450) x10^3/uL MPV (7.5-11.0) fL Gran % (36.0-66.0) % Immature Gran % (Auto) (0.00-0.4) % Nucleat RBC Rel Count (0.00-0.1) % Eos # (Auto) (0-0.5) x10^3/uL Immature Gran # (Auto) (0.00-0.03) x10^3u/L Absolute Lymphs (auto) (1.0-4.6) x10^3/uL Absolute Monos (auto) (0.0-1.3) x10^3/uL Absolute Nucleated RBC (0.00-0.01) x10^3u/L Lymphocytes % (24.0-44.0) % Monocytes % (0.0-12.0) % Eosinophils % (0.00-5.0) % Basophils % (0.0-0.4) % Absolute Granulocytes (1.4-6.9) x10^3/uL Basophils # (0-0.4) x10^3/uL Sodium 135 L (137-145) mmol/L Potassium 4.0 (3.5-5.1) mmol/L Chloride 101 (98-107) mmol/L Carbon Dioxide 26 (22-30) mmol/L Anion Gap 11.5 (5-15) MEQ/L BUN 16 (9-20) mg/dL Creatinine 1.18 (0.66-1.25) mg/dL Estimated GFR > 60.0 ML/MIN Glucose 158 H (74-106) mg/dL Lactic Acid 1.4 (0.4-2.0) Calcium 9.8 (8.4-10.2) mg/dL Total Bilirubin 1.60 H (0.2-1.3) mg/dL AST 38 (17-59) U/L ALT 35 (0-50) U/L Alkaline Phosphatase 113 (38-126) U/L Troponin I < 0.012 (0.000-0.034) ng/mL Serum Total Protein 8.4 H (6.3-8.2) g/dL Albumin 4.6 (3.5-5.0) g/dL Amylase 456 H (30-110) U/L Lipase 2368 H (23-300) U/L 10/26/22 Range/Units 11:45 WBC 20.0 H (4.0-10.5) x10^3/uL RBC 5.20 (4.1-5.6) x10^6/uL Hgb 16.4 (12.5-18.0) g/dL Hct 48.5 (42-50) % MCV 93.3 (78-100) fL MCH 31.5 (26-32) pg MCHC 33.8 (32-36) g/dL RDW 12.3 (11.5-14.0) % Plt Count 341 (150-450) x10^3/uL MPV 9.8 (7.5-11.0) fL Gran % 88.6 H (36.0-66.0) % Immature Gran % (Auto) 0.4 (0.00-0.4) % Nucleat RBC Rel Count 0.0 (0.00-0.1) % Eos # (Auto) 0 (0-0.5) x10^3/uL Immature Gran # (Auto) 0.07 H (0.00-0.03) x10^3u/L Absolute Lymphs (auto) 1.28 (1.0-4.6) x10^3/uL Absolute Monos (auto) 0.88 (0.0-1.3) x10^3/uL Absolute Nucleated RBC 0.00 (0.00-0.01) x10^3u/L Lymphocytes % 6.4 L (24.0-44.0) % Monocytes % 4.4 (0.0-12.0) % Eosinophils % 0.0 (0.00-5.0) % Basophils % 0.2 (0.0-0.4) % Absolute Granulocytes 17.70 H (1.4-6.9) x10^3/uL Basophils # 0.03 (0-0.4) x10^3/uL Sodium (137-145) mmol/L Potassium (3.5-5.1) mmol/L Chloride (98-107) mmol/L Carbon Dioxide (22-30) mmol/L Anion Gap (5-15) MEQ/L BUN (9-20) mg/dL Creatinine (0.66-1.25) mg/dL Estimated GFR ML/MIN Glucose (74-106) mg/dL Lactic Acid (0.4-2.0) Calcium (8.4-10.2) mg/dL Total Bilirubin (0.2-1.3) mg/dL AST (17-59) U/L ALT (0-50) U/L Alkaline Phosphatase (38-126) U/L Troponin I (0.000-0.034) ng/mL Serum Total Protein (6.3-8.2) g/dL Albumin (3.5-5.0) g/dL Amylase (30-110) U/L Lipase (23-300) U/L - Progress Progress: improved, pain not gone completely, re-examined Progress Note: 10/26/22 14:07 64-year-old with history of hypertension, GERD is evaluated for upper abdominal/epigastric pain started yesterday evening which got worse today and more in the periumbilical area moderate to severe sharp with associated nausea and vomiting. Patient is pretty tender on exam in the epigastric area with some guarding. I did ultrasound bedside on arrival with no appreciable AAA. Given symptomatic treatment along with fluids and feeling some improvement in pain but not completely resolved. Patient has a white count of 20 and chemistries showed elevated lipase in 2300s and amylase in 400s. Obtain CT abdomen pelvis with contrast which is positive for acute pancreatitis with very small amount of free fluid. EKG normal sinus rhythm with no ST elevation and negative troponins. CT abdomen pelvis otherwise negative for perforation, obstruction, AAA. Patient discussed with Dr. Mckinley, reviewed history, work-up, agreed with conservative management of acute pancreatitis with n.p.o., IV fluid and pain medication. Patient is admitted to the floor. Plan discussed with patient understand and agrees with it. Discussed with : Christian Will see patient in: hospital (observation) Counseled pt/family regarding: lab results, diagnosis, rad results - Departure Departure Disposition: Observation Clinical Impression: Acute pancreatitis Condition: Stable Critical Care Time: Yes Critical Care Time(excluding separately billable procedures): Critical 30-74 mins Referrals: SHIVAM ORTEZ [Primary Care Provider] - Follow up/PCP as directed
[2022-10-26 12:06] LABS: ALBUMIN 4.6 g/dL (3.5-5.0); ALKALINE PHOSPHATASE 113 U/L (38-126); AMYLASE 456 U/L (30-110); ANION GAP 11.5 MEQ/L (5-15); BLOOD UREA NITROGEN 16 mg/dL (9-20); CHLORIDE 101 mmol/L (98-107); Calcium 9.8 mg/dL (8.4-10.2); Carbon Dioxide 26 mmol/L (22-30); Creatinine 1 1.18 mg/dL (0.66-1.25); EST GLOMERULAR FILTRATION RATE > 60.0 ML/MIN; Glucose 158 mg/dL (74-106); SGOT/AST 38 U/L (17-59); SGPT/ALT 35 U/L (0-50); SODIUM 135 mmol/L (137-145); Total Protein 8.4 g/dL (6.3-8.2)
[2022-10-26 12:37] LABS: LIPASE 2368 U/L (23-300)
--- NOTE | 2022-10-26 14:00 | XRAY ---
Indication: Abdomen pain, nausea, and vomiting. Elevated amylase/lipase. Multiple contiguous axial images obtained through the abdomen and pelvis using 80 cc Isovue 370 contrast. Comparison: None Lung bases demonstrate moderate bilateral dependent atelectasis. Heart not enlarged. Small hiatal hernia. Noncontrasted stomach and bowel loops appear nonobstructed. Head of pancreas appears edematous with moderate peripancreatic stranding favoring acute pancreatitis. Small free fluid but no walled off fluid collection or free air. Both kidneys enhance and excrete with 7 mm right mid renal cortical cyst. Remaining liver, gallbladder, spleen, adrenal glands, kidneys, ureters, and bladder are unremarkable. Mild scattered aortoiliac calcifications. No AAA or pathologic retroperitoneal lymphadenopathy. Osseous structures intact with mild/moderate degenerative changes throughout the visualized spine. Small fatty right inguinal hernia. Impression: 1. CT findings favoring acute pancreatitis with small free fluid. 2. Chronic findings including small hiatal hernia, tiny right renal cyst, arteriosclerotic disease, small fatty right inguinal hernia, and degenerative spondylosis.
[2022-10-26] MEDS: Sodium Chloride 0.9% 1000 ML 1,000 ML IV SCH ×2 (14:03→20:29)
[2022-10-26 15:04] LABS: INFLUENZA A NEGATIVE (NEGATIVE); INFLUENZA B NEGATIVE (NEGATIVE); RESPIRATORY SYNCTIAL VIRUS NEGATIVE (Negative); SARS-CoV-2 Xpert Express NEGATIVE (NEGATIVE)
[2022-10-26 15:40] LABS: Appearance Clear (Clear); Bilirubin Negative (Negative); Blood Negative (Negative); Glucose Negative (Negative); Ketones Trace (Negative); Leukocyte Esterase Negative (Negative); Nitrite Negative (Negative); Protein,Urine Dip Negative (Negative); Specific Gravity >=1.030 (1.005-1.030); Urobilinogen 0.2 mg/dL (0.2)
[2022-10-26] MEDS ORDERED: DUONEB 0.5-3 MG/3 ml Neb IH PRN (15:55)
[2022-10-26] MEDS ORDERED: TYLENOL 325 MG PO PRN (15:55)
[2022-10-26 16:04] LABS: Bacteria None Seen /HPF (None Seen); Epithelial Cells None Seen /HPF (None Seen); Hyaline Casts 0-2 /LPF (0-2); RBC 0-2 /HPF (0-5); WBC 0-2 /HPF (0-5)
[2022-10-26] MEDS ORDERED: PROVENTIL 2.5 MG/3 ML NEB IH PRN (16:14)
[2022-10-26 16:23] LABS: ADD URINE CULTURE? NO (NO)
[2022-10-26] MEDS: Flomax 0.4 MG PO SCH (18:13)
[2022-10-26] MEDS: CHLORTHALIDONE PO SCH (18:13)
[2022-10-26] MEDS: ECOTRIN 81 MG PO SCH (18:13)
[2022-10-26] MEDS: Zestril 20 MG PO SCH (18:13)
[2022-10-26] MEDS: xanAX 0.5 MG PO SCH (18:52)
[2022-10-26] MEDS: NORCO 7.5/325 MG TAB PO SCH (20:29)
[2022-10-26] MEDS: ZYLOPRIM 100 MG PO SCH (20:29)
[2022-10-26] MEDS ORDERED: Toprol Xl 50 MG PO SCH (22:00)
[2022-10-26] MEDS: Hydromorphone 1 mg/ml Injection IV PRN (23:20)
[2022-10-26] MEDS: Zofran 4 MG/2 ML VIAL IV PRN (23:20)
[2022-10-27] MEDS: Sodium Chloride 0.9% 1000 ML 1,000 ML IV SCH ×3 (02:39→20:49)
[2022-10-27 06:13] LABS: Absolute Neutrophil Ct (ANC) 20.23 x10^3/uL (1.4-6.9); BASOPHIL % 0.2 % (0.0-0.4); Basophil (Absolute #) 0.05 x10^3/uL (0-0.4); Eosinophil (Absolute #) 0 x10^3/uL (0-0.5); Hematocrit 43.7 % (42-50); Hemoglobin 14.5 g/dL (12.5-18.0); IMMATURE GRAN # 0.13 x10^3u/L (0.00-0.03); IMMATURE GRAN % 0.5 % (0.00-0.4); Lymphocyte (Absolute #) 2.07 x10^3/uL (1.0-4.6); Lymphocytes % 8.5 % (24.0-44.0); Mean Cell Volume 93.6 fL (78-100); Mean Corpuscular Hgb Concent. 33.2 g/dL (32-36); Monocyte (Absolute #) 1.86 x10^3/uL (0.0-1.3); Monocytes % 7.6 % (0.0-12.0); Neutrophil % 83.2 % (36.0-66.0); Platelet Count 311 x10^3/uL (150-450); Red Blood Count 4.67 x10^6/uL (4.1-5.6); Red Cell Distribution Width 12.8 % (11.5-14.0); White Blood Count 24.3 x10^3/uL (4.0-10.5)
[2022-10-27] MEDS: Hydromorphone 1 mg/ml Injection IV PRN (06:18)
[2022-10-27] MEDS: Zofran 4 MG/2 ML VIAL IV PRN (06:18)
[2022-10-27 06:42] LABS: ALBUMIN 3.9 g/dL (3.5-5.0); ALKALINE PHOSPHATASE 90 U/L (38-126); ANION GAP 9.3 MEQ/L (5-15); BLOOD UREA NITROGEN 11 mg/dL (9-20); CHLORIDE 102 mmol/L (98-107); Calcium 8.5 mg/dL (8.4-10.2); Carbon Dioxide 24 mmol/L (22-30); Creatinine 1 1.04 mg/dL (0.66-1.25); EST GLOMERULAR FILTRATION RATE > 60.0 ML/MIN; Glucose 114 mg/dL (74-106); Potassium 4.3 mmol/L (3.5-5.1); SGOT/AST 29 U/L (17-59); SGPT/ALT 26 U/L (0-50); SODIUM 131 mmol/L (137-145); Total Protein 7.4 g/dL (6.3-8.2)
[2022-10-27 08:56] LABS: Slide Review 1 YES
[2022-10-27] MEDS: ZYLOPRIM 100 MG PO SCH ×2 (10:00→21:08)
[2022-10-27] MEDS: NORCO 7.5/325 MG TAB PO SCH ×2 (10:00→21:07)
[2022-10-27] MEDS: xanAX 0.5 MG PO SCH (10:01)
[2022-10-27] MEDS: ECOTRIN 81 MG PO SCH (10:02)
[2022-10-27] MEDS: Zestril 20 MG PO SCH (10:02)
[2022-10-27] MEDS: Flomax 0.4 MG PO SCH (10:02)
[2022-10-27] MEDS: ROCEPHIN 1 Gm-D5w 50 ml Bag** 1 G/50 ML IVPB IV SCH (10:03)
[2022-10-27] MEDS: CHLORTHALIDONE PO SCH (10:03)
[2022-10-27] MEDS: PROTONIX 40 MG IV IV SCH (10:03)
--- NOTE | 2022-10-27 10:56 | XRAY ---
Indication: Abdomen pain. Pancreatitis. Two-dimensional gallbladder sonogram performed. Comparison: None Pancreas not well-visualized due to overlying bowel gas. Gallbladder normally distended without gallstones, wall thickening, or pericholecystic fluid. Common bile duct measures 4.7 mm. No intrahepatic biliary distention. Remaining visualized liver and right kidney are sonographically unremarkable. Right kidney measures 9.6 cm in length. Impression: Nonvisualization pancreas. Remaining gallbladder sonogram is negative.
[2022-10-27] MEDS: FLAGYL 500 MG IVPB 500 MG/100 ML BAG IV SCH ×3 (12:27→23:00)
[2022-10-27] MEDS: Toprol Xl 100 MG PO SCH (21:08)
[2022-10-28] MEDS: Sodium Chloride 0.9% 1000 ML 1,000 ML IV SCH ×3 (04:07→21:57)
[2022-10-28] MEDS: FLAGYL 500 MG IVPB 500 MG/100 ML BAG IV SCH ×3 (05:39→18:07)
[2022-10-28] MEDS: Hydromorphone 1 mg/ml Injection IV PRN ×2 (05:45→16:22)
[2022-10-28 06:14] LABS: Hemoglobin 14.2 g/dL (12.5-18.0); Mean Cell Volume 92.7 fL (78-100); Mean Corpuscular Hemoglobin 31.3 pg (26-32); Mean Corpuscular Hgb Concent. 33.8 g/dL (32-36); Mean Platelet Volume 9.8 fL (7.5-11.0); Platelet Count 299 x10^3/uL (150-450); Red Blood Count 4.53 x10^6/uL (4.1-5.6); Red Cell Distribution Width 12.5 % (11.5-14.0); White Blood Count 20.3 x10^3/uL (4.0-10.5)
[2022-10-28 06:59] LABS: ALBUMIN 3.8 g/dL (3.5-5.0); ALKALINE PHOSPHATASE 92 U/L (38-126); ANION GAP 12.1 MEQ/L (5-15); BLOOD UREA NITROGEN 13 mg/dL (9-20); CHLORIDE 98 mmol/L (98-107); Calcium 8.4 mg/dL (8.4-10.2); Carbon Dioxide 24 mmol/L (22-30); Creatinine 1 1.08 mg/dL (0.66-1.25); EST GLOMERULAR FILTRATION RATE > 60.0 ML/MIN; Glucose 104 mg/dL (74-106); LIPASE 948 U/L (23-300); SGOT/AST 26 U/L (17-59); SGPT/ALT 21 U/L (0-50); SODIUM 129 mmol/L (137-145); Total Protein 7.4 g/dL (6.3-8.2)
[2022-10-28] MEDS: NORCO 7.5/325 MG TAB PO SCH ×2 (09:00→21:16)
[2022-10-28] MEDS: xanAX 0.5 MG PO SCH (09:00)
[2022-10-28] MEDS: ZYLOPRIM 100 MG PO SCH ×2 (09:04→21:17)
[2022-10-28] MEDS: Zestril 20 MG PO SCH (09:05)
[2022-10-28] MEDS: ECOTRIN 81 MG PO SCH (09:05)
[2022-10-28] MEDS: Flomax 0.4 MG PO SCH (09:05)
[2022-10-28] MEDS: CHLORTHALIDONE PO SCH (09:12)
[2022-10-28] MEDS: PROTONIX 40 MG IV IV SCH (09:13)
[2022-10-28] MEDS: ROCEPHIN 1 Gm-D5w 50 ml Bag** 1 G/50 ML IVPB IV SCH (09:17)
[2022-10-28] MEDS: Toprol Xl 100 MG PO SCH (21:16)
[2022-10-29] MEDS: FLAGYL 500 MG IVPB 500 MG/100 ML BAG IV SCH ×5 (00:30→23:18)
[2022-10-29] MEDS: Sodium Chloride 0.9% 1000 ML 1,000 ML IV SCH ×3 (06:02→15:58)
[2022-10-29 06:26] LABS: Hematocrit 41.9 % (42-50); Hemoglobin 14.2 g/dL (12.5-18.0); Mean Cell Volume 92.7 fL (78-100); Mean Corpuscular Hemoglobin 31.4 pg (26-32); Mean Corpuscular Hgb Concent. 33.9 g/dL (32-36); Mean Platelet Volume 10.1 fL (7.5-11.0); Platelet Count 313 x10^3/uL (150-450); Red Blood Count 4.52 x10^6/uL (4.1-5.6); Red Cell Distribution Width 12.4 % (11.5-14.0); White Blood Count 14.8 x10^3/uL (4.0-10.5)
[2022-10-29 07:01] LABS: ALBUMIN 3.7 g/dL (3.5-5.0); ALKALINE PHOSPHATASE 91 U/L (38-126); ANION GAP 11.6 MEQ/L (5-15); BLOOD UREA NITROGEN 13 mg/dL (9-20); CHLORIDE 98 mmol/L (98-107); Calcium 8.5 mg/dL (8.4-10.2); Carbon Dioxide 26 mmol/L (22-30); Creatinine 1 1.02 mg/dL (0.66-1.25); EST GLOMERULAR FILTRATION RATE > 60.0 ML/MIN; Glucose 120 mg/dL (74-106); LIPASE 346 U/L (23-300); Potassium 3.7 mmol/L (3.5-5.1); SGOT/AST 23 U/L (17-59); SGPT/ALT 19 U/L (0-50); SODIUM 132 mmol/L (137-145); Total Protein 7.3 g/dL (6.3-8.2)
[2022-10-29] MEDS: PROTONIX 40 MG IV IV SCH (08:27)
[2022-10-29] MEDS: NORCO 7.5/325 MG TAB PO SCH ×2 (08:27→21:10)
[2022-10-29] MEDS: xanAX 0.5 MG PO SCH (08:29)
[2022-10-29] MEDS: ROCEPHIN 1 Gm-D5w 50 ml Bag** 1 G/50 ML IVPB IV SCH (09:09)
[2022-10-29] MEDS: Zestril 20 MG PO SCH (09:14)
[2022-10-29] MEDS: Flomax 0.4 MG PO SCH (09:14)
[2022-10-29] MEDS: CHLORTHALIDONE PO SCH (09:15)
[2022-10-29] MEDS: ECOTRIN 81 MG PO SCH (09:15)
[2022-10-29] MEDS: ZYLOPRIM 100 MG PO SCH ×2 (09:15→21:11)
[2022-10-29] MEDS: Toprol Xl 100 MG PO SCH (21:10)
[2022-10-30] MEDS: Sodium Chloride 0.9% 1000 ML 1,000 ML IV SCH ×2 (00:17→11:18)
[2022-10-30] MEDS: Hydromorphone 1 mg/ml Injection IV PRN ×2 (03:44→18:10)
[2022-10-30] MEDS: FLAGYL 500 MG IVPB 500 MG/100 ML BAG IV SCH ×4 (05:21→23:20)
[2022-10-30 05:29] LABS: Hematocrit 41.3 % (42-50); Hemoglobin 13.8 g/dL (12.5-18.0); Mean Corpuscular Hemoglobin 31.1 pg (26-32); Mean Corpuscular Hgb Concent. 33.4 g/dL (32-36); Platelet Count 348 x10^3/uL (150-450); Red Blood Count 4.44 x10^6/uL (4.1-5.6); Red Cell Distribution Width 12.1 % (11.5-14.0); White Blood Count 11.6 x10^3/uL (4.0-10.5)
[2022-10-30 06:07] LABS: ALBUMIN 3.2 g/dL (3.5-5.0); ALKALINE PHOSPHATASE 79 U/L (38-126); BLOOD UREA NITROGEN 12 mg/dL (9-20); CHLORIDE 99 mmol/L (98-107); Calcium 8.6 mg/dL (8.4-10.2); Carbon Dioxide 25 mmol/L (22-30); Creatinine 1 0.99 mg/dL (0.66-1.25); EST GLOMERULAR FILTRATION RATE > 60.0 ML/MIN; Glucose 108 mg/dL (74-106); LIPASE 856 U/L (23-300); Potassium 4.1 mmol/L (3.5-5.1); SGOT/AST 19 U/L (17-59); SGPT/ALT 15 U/L (0-50); SODIUM 132 mmol/L (137-145)
[2022-10-30] MEDS: ROCEPHIN 1 Gm-D5w 50 ml Bag** 1 G/50 ML IVPB IV SCH (08:53)
[2022-10-30] MEDS: PROTONIX 40 MG IV IV SCH (08:55)
[2022-10-30] MEDS: ECOTRIN 81 MG PO SCH (08:58)
[2022-10-30] MEDS: NORCO 7.5/325 MG TAB PO SCH ×2 (08:58→21:15)
[2022-10-30] MEDS: xanAX 0.5 MG PO SCH (08:58)
[2022-10-30] MEDS: Zestril 20 MG PO SCH (08:59)
[2022-10-30] MEDS: CHLORTHALIDONE PO SCH (08:59)
[2022-10-30] MEDS: ZYLOPRIM 100 MG PO SCH ×2 (08:59→21:15)
[2022-10-30] MEDS: Flomax 0.4 MG PO SCH (08:59)
--- NOTE | 2022-10-30 19:19 | PCM.NOTE ---
Date and Time: 10/30/221914 Subjective Assessment: Pancreatitis improving and has tolerated solid food. WBC and Lipase still elevated but improved . Abd pain also improved. No BM yet. Objective Exam General Appearance: no apparent distress Neurologic Exam: alert, oriented x 3, cooperative, normal mood/affect Skin Exam: normal color, warm, dry Respiratory Exam: normal breath sounds Cardiovascular Exam: regular rate/rhythm Gastrointestinal/Abdomen Exam: tenderness (LUQ 1+/4), distention Extremity Exam: normal inspection OBJECTIVE DATA Vital Signs: Vital Signs - 24 hr Temp Pulse Resp BP Pulse Ox 10/30/22 16:00 98.7 F 79 16 121/67 95 10/30/22 15:00 16 10/30/22 12:00 98.7 F 72 16 120/77 93 L 10/30/22 11:00 18 10/30/22 07:21 98.6 F 65 16 136/69 96 10/30/22 04:00 98.0 F 71 18 116/82 94 L 10/30/22 00:00 97.3 F 81 18 113/79 93 L 10/29/22 23:00 16 10/29/22 20:00 98.7 F 75 16 105/65 91 L Pain Assessment - Last Documented Pain Intensity 9 Pain Scale Used 0-10 Pain Scale Intake and Output: Intake & Output 10/28/22 10/29/22 10/30/22 10/31/22 11:59 11:59 11:59 11:59 Intake Total 1807 5741 5505 2326 Output Total 1999 2850 5800 Balance 1471 2917 -295 2326 Weight 86.5 kg 86.5 kg 86 kg Lab Results: Lab Results-Last 24 Hours 10/30/22 10/30/22 Range/Units 04:43 04:43 WBC 11.6 H (4.0-10.5) x10^3/uL RBC 4.44 (4.1-5.6) x10^6/uL Hgb 13.8 (12.5-18.0) g/dL Hct 41.3 L (42-50) % MCV 93.0 (78-100) fL MCH 31.1 (26-32) pg MCHC 33.4 (32-36) g/dL RDW 12.1 (11.5-14.0) % Plt Count 348 (150-450) x10^3/uL MPV 10.0 (7.5-11.0) fL Sodium 132 L (137-145) mmol/L Potassium 4.1 (3.5-5.1) mmol/L Chloride 99 (98-107) mmol/L Carbon Dioxide 25 (22-30) mmol/L Anion Gap 12.0 (5-15) MEQ/L BUN 12 (9-20) mg/dL Creatinine 0.99 (0.66-1.25) mg/dL Estimated GFR > 60.0 ML/MIN Glucose 108 H (74-106) mg/dL Calcium 8.6 (8.4-10.2) mg/dL Total Bilirubin 0.50 (0.2-1.3) mg/dL AST 19 (17-59) U/L ALT 15 (0-50) U/L Alkaline Phosphatase 79 (38-126) U/L Serum Total Protein 6.0 L (6.3-8.2) g/dL Albumin 3.2 L (3.5-5.0) g/dL Lipase 856 H (23-300) U/L Multi-Disciplinary Progress Notes: Multi-Disciplinary Progress Notes 10/30/22 15:26 Case Management Note by Natividad Hwang S/W PATIENT- HE CONTINUES TO DENY ANY NEW NEEDS AT TIME OF DC. HE PLANS TO RETURN HOME TO HIS PLF AT TIME OF DC Initialized on 10/30/22 15:26 - END OF NOTE Assessment/Plan (1) Acute pancreatitis Current Visit: Yes Status: Acute Assessment & Plan: improved possibly home tomorrow. Code(s): K85.90 - ACUTE PANCREATITIS WITHOUT NECROSIS OR INFECTION, UNSP
[2022-10-30] MEDS: Toprol Xl 100 MG PO SCH (21:15)
[2022-10-31] MEDS: BENADRYL 25 MG CAPSULE PO PRN ×2 (01:01→20:49)
[2022-10-31] MEDS: FLAGYL 500 MG IVPB 500 MG/100 ML BAG IV SCH ×4 (05:07→23:46)
[2022-10-31 05:53] LABS: Hematocrit 42.1 % (42-50); Hemoglobin 13.9 g/dL (12.5-18.0); Mean Cell Volume 93.6 fL (78-100); Mean Corpuscular Hemoglobin 30.9 pg (26-32); Mean Platelet Volume 9.8 fL (7.5-11.0); Platelet Count 368 x10^3/uL (150-450); Red Cell Distribution Width 12.2 % (11.5-14.0); White Blood Count 9.6 x10^3/uL (4.0-10.5)
[2022-10-31 07:00] LABS: ALBUMIN 3.6 g/dL (3.5-5.0); ALKALINE PHOSPHATASE 75 U/L (38-126); ANION GAP 11.1 MEQ/L (5-15); BLOOD UREA NITROGEN 11 mg/dL (9-20); CHLORIDE 98 mmol/L (98-107); Calcium 8.8 mg/dL (8.4-10.2); Carbon Dioxide 27 mmol/L (22-30); Creatinine 1 0.96 mg/dL (0.66-1.25); EST GLOMERULAR FILTRATION RATE > 60.0 ML/MIN; Glucose 132 mg/dL (74-106); LIPASE 763 U/L (23-300); Potassium 3.4 mmol/L (3.5-5.1); SGOT/AST 24 U/L (17-59); SGPT/ALT 18 U/L (0-50); SODIUM 133 mmol/L (137-145)
[2022-10-31] MEDS: Flomax 0.4 MG PO SCH (10:11)
[2022-10-31] MEDS: NORCO 7.5/325 MG TAB PO SCH ×3 (10:11→20:48)
[2022-10-31] MEDS: MOTRIN 400 MG PO PRN ×2 (10:11→23:51)
[2022-10-31] MEDS: Zestril 20 MG PO SCH (10:11)
[2022-10-31] MEDS: ECOTRIN 81 MG PO SCH (10:11)
[2022-10-31] MEDS: xanAX 0.5 MG PO SCH (10:11)
[2022-10-31] MEDS: ZYLOPRIM 100 MG PO SCH ×2 (10:11→20:48)
[2022-10-31] MEDS: PROTONIX 40 MG IV IV SCH (10:12)
[2022-10-31] MEDS: CHLORTHALIDONE PO SCH (10:12)
[2022-10-31] MEDS: ROCEPHIN 1 Gm-D5w 50 ml Bag** 1 G/50 ML IVPB IV SCH (10:12)
[2022-10-31] MEDS: Toprol Xl 100 MG PO SCH (20:48)
[2022-11-01 05:04] LABS: Hemoglobin 14.2 g/dL (12.5-18.0); Mean Cell Volume 93.7 fL (78-100); Mean Corpuscular Hemoglobin 30.9 pg (26-32); Mean Platelet Volume 9.8 fL (7.5-11.0); Platelet Count 398 x10^3/uL (150-450); Red Blood Count 4.59 x10^6/uL (4.1-5.6); Red Cell Distribution Width 12.1 % (11.5-14.0); White Blood Count 8.7 x10^3/uL (4.0-10.5)
[2022-11-01 05:34] LABS: ALBUMIN 3.6 g/dL (3.5-5.0); ALKALINE PHOSPHATASE 73 U/L (38-126); ANION GAP 11.5 MEQ/L (5-15); BLOOD UREA NITROGEN 11 mg/dL (9-20); CHLORIDE 98 mmol/L (98-107); Calcium 8.4 mg/dL (8.4-10.2); Carbon Dioxide 27 mmol/L (22-30); Creatinine 1 1.04 mg/dL (0.66-1.25); EST GLOMERULAR FILTRATION RATE > 60.0 ML/MIN; Glucose 110 mg/dL (74-106); LIPASE 752 U/L (23-300); Potassium 3.4 mmol/L (3.5-5.1); SGOT/AST 26 U/L (17-59); SGPT/ALT 19 U/L (0-50); SODIUM 133 mmol/L (137-145)
[2022-11-01] MEDS: FLAGYL 500 MG IVPB 500 MG/100 ML BAG IV SCH (05:53)
[2022-11-01 07:31] VITALS: PULSE 60; O2SAT 96
[2022-11-01] MEDS: PROTONIX 40 MG IV IV SCH (10:42)
[2022-11-01] MEDS: Flomax 0.4 MG PO SCH (10:42)
[2022-11-01] MEDS: xanAX 0.5 MG PO SCH (10:42)
[2022-11-01] MEDS: Zestril 20 MG PO SCH (10:42)
[2022-11-01] MEDS: NORCO 7.5/325 MG TAB PO SCH (10:42)
[2022-11-01] MEDS: ECOTRIN 81 MG PO SCH (10:42)
[2022-11-01] MEDS: CHLORTHALIDONE PO SCH (10:42)
[2022-11-01] MEDS: ROCEPHIN 1 Gm-D5w 50 ml Bag** 1 G/50 ML IVPB IV SCH (10:42)
[2022-11-01] MEDS: ZYLOPRIM 100 MG PO SCH (10:42)
[2022-11-01 12:43] VITALS: BP 128/68
--- NOTE | 2022-11-13 21:23 | PCM.HP ---
History of Present Illness - Chief Complaint Chief Complaint: Acute pancreatitis Date: 11/05/22 History of Present Illness: is a 62 year old male.62 years old male with a history of hypertension, questionable history of GERD presented in the ER with chief complaint of epigastric pain started last but with gradually worsening this morning and more in the periumbilical area 10/10 intensity, nonradiating, associated with nausea and vomiting. No chest pain palpitations or shortness of breath. - Review of Systems Constitutional: No Fever, No Chills Eyes: No Symptoms Ears, Nose, & Throat: No Symptoms Respiratory: No Cough, No Short Of Breath Cardiac: No Chest Pain, No Edema, No Syncope Abdominal/Gastrointestinal: Abdominal Pain, Nausea, Vomiting, No Diarrhea Genitourinary Symptoms: No Dysuria Musculoskeletal: No Back Pain, No Neck Pain Skin: No Rash Neurological: No Dizziness, No Focal Weakness, No Sensory Changes Psychological: No Symptoms Endocrine: No Symptoms Hematologic/Lymphatic: No Symptoms Immunological/Allergic: No Symptoms Medications & Allergies Home Medications: Home Medication List Lisinopril 20 mg [Zestril 20 MG] 1 tab PO DAILY 11/10/21 [History Confirmed 10/26/22] ALPRAZolam [Alprazolam] 0.5 mg PO DAILY 10/26/22 [History Confirmed 10/26/22] Allopurinol 100 mg [Zyloprim 100 mg] 100 mg PO BID 10/26/22 [History Confirmed 10/26/22] Aspirin EC 81 mg [Ecotrin 81 mg] 81 mg PO DAILY 10/26/22 [History Confirmed 10/26/22] Chlorthalidone 25 mg PO DAILY 10/26/22 [History Confirmed 10/26/22] Hydrocodone/Acetaminophen [Hydrocodone-Acetamin 7.5-325] 1 each PO BID 10/26/22 [History Confirmed 10/26/22] Metoprolol Succinate 50 mg [Toprol Xl 50 MG] 50 mg PO HS 10/26/22 [History Confirmed 10/26/22] Tamsulosin HCl 0.4 mg [Flomax 0.4 MG] 0.4 mg PO DAILY 10/26/22 [History Confirmed 10/26/22] Allergies/Adverse Reactions: Allergies Allergy/AdvReac Type Severity Reaction Status Date / Time penicillin G Allergy Intermediate Rash Verified 10/26/22 11:37 - Past Medical History Past Medical History: Yes Neurological History: No Pertinent History ENT History: No Pertinent History Cardiac History: Hypertension Respiratory History: No Pertinent History, Tuberculosis, Other Endocrine Medical History: No Pertinent History Musculoskelatal History: Arthritis, Degenerative Disk Disease, Fibromyalgia GI Medical History: No Pertinent History History: No Pertinent History Pyscho-Social History: No Pertinent History, Anxiety, Depression Male Reproductive Disorders: No Pertinent History Comment: back pain. tb is dormant - Past Surgical History Past Surgical History: Yes Neuro Surgical History: No Pertinent History Cardiac History: No Pertinent History Respiratory Surgery: No Pertinent History GI Surgical History: No Pertinent History Genitourinary Surgical Hx: No Pertinent History Musculskeletal Surgical Hx: Orthopedic Surgery Male Surgical History: No Pertinent History Other Surgical History: lt thumb, cyst removed from back - Social History Smoking Status: Current every day smoker How long have you smoked: 49 years Exposure to second hand smoke: Yes Alcohol: None Drug Use: none - Physical Exam General Appearance: no apparent distress, alert Neurologic Exam: alert, oriented x 3, cooperative, normal mood/affect, nml cerebellar function, nml station & gait, sensation nml, No motor deficits Eye Exam: PERRL/EOMI, eyes nml inspection Ears, Nose, Throat Exam: normal ENT inspection, TMs normal, pharynx normal, moist mucous membranes Neck Exam: normal inspection, non-tender, supple, full range of motion Respiratory Exam: normal breath sounds, lungs clear, No respiratory distress Cardiovascular Exam: regular rate/rhythm, normal heart sounds, normal peripheral pulses Gastrointestinal/Abdomen Exam: soft, normal bowel sounds, tenderness, No mass Back Exam: normal inspection, normal range of motion, No CVA tenderness, No beth tebral tenderness Extremity Exam: normal inspection, normal range of motion, pelvis stable Skin Exam: normal color, warm, dry, No rash Lymphatic Exam: No adenopathy Assessment/Plan (1) Acute pancreatitis Status: Acute Assessment & Plan: NPO and iv hydration Code(s): K85.90 - ACUTE PANCREATITIS WITHOUT NECROSIS OR INFECTION, UNSP
--- NOTE | 2022-11-13 21:27 | PCM.DS ---
Discharge Summary Date of Admission: 10/28/22 09:00 Date of Discharge: 11/01/2022 Admitting Physician: NELY RIOS Primary Care Provider: SHIVAM ORTEZ Allergies Allergies penicillin G Allergy (Intermediate, Verified 10/26/22 11:37) [facility] Hospital Summary - Hospital Course Hospital Course: Pt. admitted, abdominal pain resolved, pancreas markers improved and the pateint was started on clear liquids and advanced slowly as tolerated, he did have a slight bump in lipase, but this improved and diet was again advanced and although not normal the patient was tolerating po intake and self sustaining. Pt. did not feel like staying in hospital any longer and was discharged to home - Vitals & Intake/Output Vital Signs: Vital Signs Temperature 98.8 F 11/01/22 12:00 Pulse Rate 60 11/01/22 12:00 Respiratory Rate 16 11/01/22 12:00 Blood Pressure 128/68 11/01/22 12:00 O2 Sat by Pulse Oximetry 96 11/01/22 12:00 - Lab Result Diagrams: 11/01/22 04:30 11/01/22 04:30 - Procedures and Test Procedures and Tests throughout Hospitalization: Therapy Orders & Screens 10/26/22 16:15 Respiratory Therapy Assessment DAILY Comment: Diagnosis: Acute pancreatitis Smoking Cessation Education ONCE Comment: Diagnosis: Acute pancreatitis Smoking Status: Current every day smoker How long have you smoked: yrs Have you smoked in the past 12 months: Yes Approximately how many cigarettes per day: 20 Do you dip or chew tobacco: No Discharge Exam General Appearance: no apparent distress, alert Neurologic Exam: alert, oriented x 3, cooperative, normal mood/affect, nml cerebellar function, sensation nml, No motor deficits Eye Exam: PERRL, EOMI, eyes nml inspection Ears, Nose, Throat Exam: normal ENT inspection, pharynx normal, moist mucous membranes Neck Exam: normal inspection, non-tender, supple, full range of motion Respiratory Exam: normal breath sounds, lungs clear, No respiratory distress Cardiovascular Exam: regular rate/rhythm, normal heart sounds Gastrointestinal/Abdomen Exam: soft, No tenderness, No mass Male Genitalia Exam: deferred Rectal Exam: deferred Back Exam: normal inspection, normal range of motion, No CVA tenderness, No vertebral tenderness Extremity Exam: normal inspection, normal range of motion Skin Exam: normal color, warm, dry Final Diagnosis/Problem List - Final Discharge Diagnosis/Problem (1) Acute pancreatitis Status: Acute Code(s): K85.90 - ACUTE PANCREATITIS WITHOUT NECROSIS OR INFECTION, UNSP - Discharge Discharge Date: 11/01/22 Disposition: Home, Self-Care Condition: Stable Prescriptions: Continue Lisinopril 20 mg [Zestril 20 MG] 1 tab PO DAILY Allopurinol 100 mg [Zyloprim 100 mg] 100 mg PO BID ALPRAZolam [Alprazolam] 0.5 mg PO DAILY Hydrocodone/Acetaminophen [Hydrocodone-Acetamin 7.5-325] 1 each PO BID Chlorthalidone 25 mg PO DAILY Tamsulosin HCl 0.4 mg [Flomax 0.4 MG] 0.4 mg PO DAILY Metoprolol Succinate 50 mg [Toprol Xl 50 MG] 50 mg PO HS Aspirin EC 81 mg [Ecotrin 81 mg] 81 mg PO DAILY Instructions: Acute Pancreatitis, [place] Diet Follow up with: SHIVAM ORTEZ [Primary Care Provider] - 11/07/22 9:00 am Forms: Discharge Instructions
== END 2022-11-01 14:16 | disposition home or self-care (01) | DRG 440 ==
LOC: ED 11:00 → MED SURG 15:51 → OBSVTOIN 10-28 09:00
PROVIDERS: ADMIT Family Medicine; ATTEND Family Medicine
DX: K85.90 Acute pancreatitis without necrosis or infection, unspecified (principal); D72.829 Elevated white blood cell count, unspecified; I10 Essential (primary) hypertension; Z79.899 Other long term (current) drug therapy; Z20.828 Contact with and (suspected) exposure to other viral communicable diseases; Z72.0 Tobacco use
CPT/HCPCS: 0241U; 36000; 36415; 74177; 76705; 80053; 81001; 82150; 82947; 83036; 83605; 83690; 84484; 85025; 85027; 93005; 94760; 96360; 96361; 96374; 96375; 96376; 99285; 99291; G0378; J0696; J1170; J2405; A9270-GY

== ENCOUNTER 2023-12-20 12:22 | Emergency (ER) | payer OTHER ==
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
[2023-12-20 12:33] VITALS: BP 133/85; PULSE 113; RESP 20; TEMP 98.2; O2SAT 97
[2023-12-20] MEDS ORDERED: Hydromorphone 1 mg/ml Injection ONE (14:10)
[2023-12-20] MEDS ORDERED: ZOFRAN ODT 4 MG ONE (14:10)
[2023-12-20] MEDS: ZOFRAN ODT 4 MG PO ONE (14:15)
[2023-12-20] MEDS: Hydromorphone 1 mg/ml Injection IM ONE (14:17)
--- NOTE | 2023-12-20 14:17 | XRAY ---
Indication: Pain following injury. Comparison: None AP pelvis and 2 view left hip demonstrates mild/moderate degenerative changes visualized lumbar spine, bilateral superior acetabular spurring, and a few pelvic phleboliths. No other bony, articular, or soft tissue abnormalities.
[2023-12-20] MEDS ORDERED: Sterile H2O 10 ml IJ ONE (14:23)
[2023-12-20] MEDS ORDERED: solu-MEDROL ONE (14:23)
[2023-12-20] MEDS: solu-MEDROL 125 MG, Sterile H2O 10 ml 2 ML IM ONE (14:24)
== END 2023-12-20 14:50 | disposition home or self-care (01) ==
LOC: ED 12:22
DX: S76.312A Strain of muscle, fascia and tendon of the posterior muscle group at thigh level, left thigh, initial encounter (principal); S73.102A Unspecified sprain of left hip, initial encounter; I10 Essential (primary) hypertension; Z79.52 Long term (current) use of systemic steroids; Z79.899 Other long term (current) drug therapy; Z72.0 Tobacco use
CPT/HCPCS: 73502; 96372; 99283; J1170; J2930; Q0162

== ENCOUNTER 2025-01-04 23:02 | Observation (INO) | payer OTHER ==
[2025-01-05 00:45] LABS: BASOPHIL % 0.3 % (0.2-1.2); Basophil (Absolute #) 0.05 x10^3/uL (0.01-0.08); Eosinophil % 0.6 % (0.8-7.0); Hematocrit 45.9 % (40.1-51.0); Hemoglobin 15.5 g/dL (13.7-17.5); IMMATURE GRAN # 0.05 x10^3u/L (0.001-0.031); IMMATURE GRAN % 0.3 % (0.001-0.429); Lymphocyte (Absolute #) 1.83 x10^3/uL (1.32-3.57); Lymphocytes % 11.8 % (21.8-53.1); Mean Cell Volume 90.9 fL (79.0-92.2); Mean Corpuscular Hemoglobin 30.7 pg (25.7-32.2); Mean Corpuscular Hgb Concent. 33.8 g/dL (32.3-36.5); Mean Platelet Volume 9.7 fL (9.4-12.4); Monocyte (Absolute #) 1.19 x10^3/uL (0.30-0.82); Monocytes % 7.7 % (5.3-12.2); Neutrophil % 79.3 % (34.0-67.9); Platelet Count 352 x10^3/uL (163-337); Red Blood Count 5.05 x10^6/uL (4.63-6.08); Red Cell Distribution Width 12.6 % (11.6-14.4); White Blood Count 15.5 x10^3/uL (4.23-9.07)
[2025-01-05 00:57] LABS: ALBUMIN 4.9 g/dL (3.5-5.0); ANION GAP 16.2 MEQ/L (5-15); BILIRUBIN,TOTAL 1.2 mg/dL (0.2-1.3); Calcium 8.7 mg/dL (8.4-10.2); Creatinine 1 1.22 mg/dL (0.66-1.25); EST GLOMERULAR FILTRATION RATE 66.2 ML/MIN; Potassium 3.9 mmol/L (3.5-5.1); Total Protein 8.5 g/dL (6.3-8.2)
[2025-01-05] MEDS ORDERED: Zofran 4 MG/2 ML VIAL ONE (00:59)
[2025-01-05] MEDS ORDERED: MORPHINE SULFATE 4 MG INJ ONE ×2 (00:59→02:18)
[2025-01-05] MEDS: MORPHINE SULFATE 4 MG INJ IV ONE ×2 (01:00→02:20)
[2025-01-05] MEDS: Zofran 4 MG/2 ML VIAL IV ONE (01:00)
--- NOTE | 2025-01-05 01:48 | ERPHSYRPT ---
- History of Present Illness Time Seen by Provider: 01/04/25 23:43 Source: patient Exam Limitations: no limitations Patient Subjective Stated Complaint: "My arm is killing me. It hurts so bad. I didn't injury it in any way. A couple years ago, this happened to me. I had to be put on antibiotics and steriods". Triage Nursing Assessment: Pt presents to ER with complaints of left elbow pain and swelling x 2 days. Area is red and tender. Pt has limited ROM and appears in pain. Rates pain 10/10 scale. Skin is pink, warm, and dry. Respirations are easy. Denies any injury or other issues at this time. Pt is alert and oriented x 3. Physician History: 64-year-old male presented in the ER with complains of for left elbow pain and swelling for the last 2 to 3 days with progressive worsening. Patient report 10/10 intensity sharp shooting pain with increasing redness and swelling specially this evening. Patient reports excruciating pain with minimal movements at the elbow and radiating to the hand. Denies any fever or chills. Reports history of bursitis in the same elbow before which improved with antibiotics and steroid. Denies any fall or trauma. No numbness or tingling in the fingertips. Allergies/Adverse Reactions: penicillin G Allergy (Intermediate, Verified 01/04/25 23:52) Rash Home Medications: Lisinopril 20 mg [Zestril 20 MG] 1 tab PO DAILY 11/10/21 [History] ALPRAZolam [Alprazolam] 0.5 mg PO BID 10/26/22 [History] Chlorthalidone 25 mg PO DAILY 10/26/22 [History] Hydrocodone/Acetaminophen [Hydrocodone-Acetamin 7.5-325] 1 each PO BID 10/26/22 [History] Metoprolol Succinate 50 mg [Toprol Xl 50 MG] 50 mg PO HS 10/26/22 [Histo ry] Hx Tetanus, Diphtheria Vaccination/Date Given: Yes Hx Influenza Vaccination/Date Given: Yes Hx Pneumococcal Vaccination/Date Given: No Immunizations Up to Date: Yes Travel Risk - International Travel Have you traveled outside of the country in past 3 weeks: No - Emerging Infectious Disease Are you exhibiting symptoms associated with any current EIDs: No - Review of Systems Constitutional: No Symptoms Eyes: No Symptoms Ears, Nose, & Throat: No Symptoms Respiratory: No Symptoms Cardiac: No Symptoms Musculoskeletal: Joint Redness, Joint Pain, Joint Swelling Skin: No Symptoms Neurological: No Symptoms Endocrine: No Symptoms - Past Medical History Pertinent Past Medical History: Yes Neurological History: No Pertinent History ENT History: No Pertinent History Cardiac History: Hypertension Respiratory History: No Pertinent History, Tuberculosis, Other Endocrine Medical History: No Pertinent History Musculoskeletal History: Arthritis, Degenerative Disk Disease, Fibromyalgia, Osteoarthritis GI Medical History: No Pertinent History History: No Pertinent History Psycho-Social History: No Pertinent History, Anxiety, Depression Male Reproductive Disorders: No Pertinent History Other Medical History: back pain. tb is dormant - Past Surgical History Past Surgical History: Yes Neuro Surgical History: No Pertinent History Cardiac: No Pertinent History Respiratory: No Pertinent History Gastrointestinal: No Pertinent History Genitourinary: No Pertinent History Musculoskeletal: Orthopedic Surgery Male Surgical History: No Pertinent History Other Surgical History: lt thumb, cyst removed from back - Social History Smoking Status: Current every day smoker How long have you smoked: 49 years Exposure to second hand smoke: Yes Drug Use: none - Social Determinants of Health Will the patient participate in the screening: Yes Do you worry about a steady place to live?: No Do you have any problems with any of the following?: No known problems In the past 12 months,have you had to go without utilities?: No Transportation Issues: No Has anyone in your support network made you feel unsafe?: No Have you or anyone in your house had to go w/o enough food: No - Nursing Vital Signs Nursing Vital Signs: Initial Vital Signs Temperature 97.8 F 01/04/25 23:46 Pulse Rate 86 01/04/25 23:46 Respiratory Rate 18 01/04/25 23:46 Blood Pressure 155/91 01/04/25 23:46 O2 Sat by Pulse Oximetry 97 01/04/25 23:46 Pain Scale Pain Intensity 0 - Physical Exam General Appearance: no apparent distress Eyes, Ears, Nose, Throat Exam: normal ENT inspection Neck Exam: normal inspection, full range of motion Cardiovascular/Respiratory Exam: normal breath sounds, regular rate/rhythm Abdominal Exam: non-tender, soft Elbow/Forearm Exam: bone tenderness, limited ROM, pain, soft tissue tenderness (Diffuse erythema left elbow with increased temperature, tenderness, blanchable, limited range of motion), swelling Hand Exam: non-tender, no evidence of injury Neuro/Tendon Exam: normal sensation, normal motor functions Mental Status Exam: alert, oriented x 3, cooperative Skin Exam: normal color SpO2 Interpretation: normal SpO2: 99 O2 Delivery: Room Air Ordered Tests: Medication Summary Generic Name Dose Route Start Last Admin Trade Name Freq PRN Reason Stop Dose Admin Hydrocodone Bitart/Acetaminophen 1 tab 01/05/25 08:48 01/07/25 08:23 Hydrocodone/Apap 5/325 1 Tab Tablet PO 01/10/25 08:47 1 tab Q4H PRN PRN Administration PAIN Alprazolam 0.5 mg 01/06/25 09:04 01/06/25 20:18 Alprazolam 0.5 Mg Tablet PO 02/05/25 09:03 0.5 mg BID PRN PRN Administration ANXIETY Aspirin 81 mg 01/05/25 10:00 01/07/25 09:29 Aspirin 81 Mg Tablet.Ec PO 02/04/25 09:59 81 mg DAILY MITCHEL Administration Chlorthalidone 25 mg 01/05/25 10:00 01/07/25 09:29 Chlorthalidone 25 Mg Tablet PO 02/04/25 09:59 25 mg DAILY MITCHEL Administration Device 1 01/08/25 07:30 Therapuetic Drug Level Monitor Each IJ 01/08/25 07:31 1XONLY ONE Hydromorphone HCl 0.5 mg 01/05/25 08:49 01/05/25 09:05 Hydromorphone 1 Mg/1ml Inj IV 01/10/25 08:48 0.5 mg Q4H PRN PRN Administration PAIN Insulin Human Lispro 0 unit 01/05/25 05:11 Insulin Lispro 1 Unit SQ 02/04/25 05:10 UD PRN HYPERGLYCEMIA Lisinopril 20 mg 01/05/25 10:00 01/07/25 09:29 Lisinopril 20 Mg Tablet PO 02/04/25 09:59 20 mg DAILY MITCHEL Administration Metoprolol Succinate 50 mg 01/05/25 22:00 01/06/25 21:49 Metoprolol Succinate 50 Mg Tablet.Sa PO 02/04/25 21:59 50 mg HS MITCHEL Administration Naproxen 500 mg 01/05/25 10:00 01/07/25 09:29 Naproxen 500 Mg Tablet PO 02/04/25 09:59 500 mg BID MITCHEL Administration Nicotine 21 mg 01/06/25 18:00 01/06/25 15:27 Nicotine 21 Mg/Patch Patch TOP 02/05/25 17:59 21 mg Q24H MITCHEL Administration Non-Formulary Dru each 01/07/25 10:00 01/07/25 09:29 Colchicine 0.4 Mg PO 01/08/25 22:01 1 each Tablet BID MITCHEL Administration Discontinued Medications Generic Name Dose Route Start Last Admin Trade Name Freq PRN Reason Stop Dose Admin Hydrocodone Bitart/Acetaminophen tab 01/05/25 10:00 Hydrocodone /Apap 7.5/325 Mg 1 Each Tablet PO 01/10/25 09:59 BID MITCHEL Hydrocodone Bitart/Acetaminophen 1 tab 01/05/25 10:00 01/05/25 06:13 Hydrocodone /Apap 7.5/325 Mg 1 Each Tablet PO 01/10/25 09:59 1 tab BID MITCHEL Administration Albuterol/Ipratropium 3 ml 01/05/25 06:06 Ipratropium/Albuterol Sulfate 3 Ml Ampul.Neb IH 02/04/25 06:05 Q4HPRN PRN SHORTNESS OF BREATH/WHEEZING Alprazolam Confirm 01/05/25 03:00 Alprazolam 0.5 Mg Tablet Administered 01/05/25 03:01 Dose 0.5 mg .ROUTE .STK-MED ONE Alprazolam 0.5 mg 01/05/25 03:06 01/05/25 03:06 Alprazolam 0.5 Mg Tablet PO 01/05/25 03:07 0.5 mg STAT ONE Administration Hydromorphone HCl 1 mg 01/05/25 16:55 01/05/25 16:57 Hydromorphone 1 Mg/1ml Inj IV 01/05/25 16:56 1 mg STAT ONE Administration Clindamycin HCl/Dextrose 600 mg in 50 mls @ 100 mls/hr 01/05/25 02:10 0 01/05/25 02:58 Clindamycin-D5w 600 Mg/50 Ml IV 01/05/25 02:39 Infused STAT STA Infusion Meropenem 1 gm/ Sodium 100 mls @ 200 mls/hr 01/05/25 02:10 01/05/25 02:59 Chloride IV 01/05/25 02:39 Infused STAT ONE Infusion Sodium Chloride Confirm 01/05/25 02:17 Sodium Chloride 100ml Mini-Bag Plus Administered 01/05/25 02:18 Dose 100 mls @ ud IV .STK-MED ONE Clindamycin HCl/Dextrose Confirm 01/05/25 02:17 Clindamycin-D5w 600 Mg/50 Ml Administered 01/05/25 02:18 Dose 600 mg in 50 mls @ ud IV .STK-MED ONE Sodium Chloride 1,000 mls @ 125 mls/hr 01/05/25 03:45 01/05/25 23:28 Sodium Chloride 0.9% 1000 Ml IV 02/04/25 03:44 125 mls/hr .Q8H MITCHEL Administration Meropenem 500 mg/ Sodium 100 mls @ 200 mls/hr 01/05/25 06:00 01/07/25 05:36 Chloride IV 02/04/25 05:59 200 mls/hr Q8HT MITCHEL Administration Vancomycin HCl 1.5 gm in 300 mls @ 150 mls/hr 01/05/25 08:00 01/07/25 08:27 Vancomycin 1.5 Gram/300 Ml Bag IV 02/04/25 07:59 Not Given Q24H MITCHEL Meropenem Confirm 01/05/25 02:16 Meropenem 1 Gm Vial Administered 01/05/25 02:17 Dose 1 gm IV .STK-MED ONE Morphine Sulfate 4 mg 01/05/25 00:22 01/05/25 01:00 Morphine Sulfate 4 Mg/Ml Injection IV 01/05/25 00:23 4 mg STAT ONE Administration Morphine Sulfate Confirm 01/05/25 00:59 Morphine Sulfate 4 Mg/Ml Injection Administered 01/05/25 01:00 Dose 4 mg .ROUTE .STK-MED ONE Morphine Sulfate 4 mg 01/05/25 02:10 01/05/25 02:20 Morphine Sulfate 4 Mg/Ml Injection IV 01/05/25 02:11 4 mg STAT ONE Administration Morphine Sulfate Confirm 01/05/25 02:18 Morphine Sulfate 4 Mg/Ml Injection Administered 01/05/25 02:19 Dose 4 mg .ROUTE .STK-MED ONE Nicotine 21 mg 01/05/25 02:55 01/05/25 03:10 Nicotine 21 Mg/Patch Patch TOP 01/05/25 02:56 21 mg STAT STA Administration Non-Formulary Medication 1 each 01/05/25 05:30 Pharmacy Dose Request: Vancomycin 1 Each IV 02/04/25 05:29 ONCALLTOOR MITCHEL Non-Formulary Drug : 2 each 01/06/25 09:00 01/06/25 10:25 Colchicine 0.6 Mg PO 01/06/25 09:01 2 each Tab NOW ONE Administration Non-Formulary Drug : 1 each 01/06/25 10:00 01/06/25 11:28 Colchicine 0.6 Mg PO 01/06/25 10:01 1 each 1000 MITCHEL Administration Ondansetron HCl 4 mg 01/05/25 00:22 01/05/25 01:00 Ondansetron Hcl 4 Mg/2 Ml Vial IV 01/05/25 00:23 4 mg STAT ONE Administration Ondansetron HCl Confirm 01/05/25 00:59 Ondansetron Hcl 4 Mg/2 Ml Vial Administered 01/05/25 01:00 Dose 4 mg .ROUTE .[facility]-MED ONE Lab/Rad Data: Laboratory Result Diagrams 01/05/25 00:40 01/05/25 00:40 Laboratory Results 01/05/25 01/05/25 01/05/25 Range/Units 01:00 00:40 00:40 WBC (4.23-9.07) x10^3/uL RBC (4.63-6.08) x10^6/uL Hgb (13.7-17.5) g/dL Hct (40.1-51.0) % MCV (79.0-92.2) fL MCH (25.7-32.2) pg MCHC (32.3-36.5) g/dL RDW (11.6-14.4) % Plt Count (163-337) x10^3/uL MPV (9.4-12.4) fL Gran % (34.0-67.9) % Immature Gran % (Auto) (0.001-0.429) % Nucleat RBC Rel Count (0.00-0.2) % Eos # (Auto) (0.04-0.54) x10^3/uL Immature Gran # (Auto) (0.001-0.031) x10^3u/L Absolute Lymphs (auto) (1.32-3.57) x10^3/uL Absolute Monos (auto) (0.30-0.82) x10^3/uL Absolute Nucleated RBC (0.00-0.012) x10^3u/L Lymphocytes % (21.8-53.1) % Monocytes % (5.3-12.2) % Eosinophils % (0.8-7.0) % Basophils % (0.2-1.2) % Absolute Granulocytes (1.78-5.38) x10^3/uL Basophils # (0.01-0.08) x10^3/uL ESR 37 H (0-15) mm/hr Sodium (135-145) mmol/L Potassium (3.5-5.1) mmol/L Chloride (98-107) mmol/L Carbon Dioxide (22-30) mmol/L Anion Gap (5-15) MEQ/L BUN (9-20) mg/dL Creatinine (0.66-1.25) mg/dL Estimated GFR ML/MIN Glucose (74-106) mg/dL Lactic Acid (0.4-2.0) Uric Acid 8.6 H (3.5-7.2) mg/dL Calcium (8.4-10.2) mg/dL Total Bilirubin (0.2-1.3) mg/dL AST (17-59) U/L ALT (0-50) U/L Alkaline Phosphatase (38-126) U/L Serum Total Protein (6.3-8.2) g/dL Albumin (3.5-5.0) g/dL Procalcitonin 0.078 (0.030-0.080) ng/mL 01/05/25 01/05/25 01/05/25 Range/Units 00:40 00:40 00:35 WBC 15.5 H (4.23-9.07) x10^3/uL RBC 5.05 (4.63-6.08) x10^6/uL Hgb 15.5 (13.7-17.5) g/dL Hct 45.9 (40.1-51.0) % MCV 90.9 (79.0-92.2) fL MCH 30.7 (25.7-32.2) pg MCHC 33.8 (32.3-36.5) g/dL RDW 12.6 (11.6-14.4) % Plt Count 352 H (163-337) x10^3/uL MPV 9.7 (9.4-12.4) fL Gran % 79.3 H (34.0-67.9) % Immature Gran % (Auto) 0.3 (0.001-0.429) % Nucleat RBC Rel Count 0.0 (0.00-0.2) % Eos # (Auto) 0.10 (0.04-0.54) x10^3/uL Immature Gran # (Auto) 0.05 H (0.001-0.031) x10^3u/L Absolute Lymphs (auto) 1.83 (1.32-3.57) x10^3/uL Absolute Monos (auto) 1.19 H (0.30-0.82) x10^3/uL Absolute Nucleated RBC 0.00 (0.00-0.012) x10^3u/L Lymphocytes % 11.8 L (21.8-53.1) % Monocytes % 7.7 (5.3-12.2) % Eosinophils % 0.6 L (0.8-7.0) % Basophils % 0.3 (0.2-1.2) % Absolute Granulocytes 12.30 H (1.78-5.38) x10^3/uL Basophils # 0.05 (0.01-0.08) x10^3/uL ESR (0-15) mm/hr Sodium 139 (135-145) mmol/L Potassium 3.9 (3.5-5.1) mmol/L Chloride 101 (98-107) mmol/L Carbon Dioxide 25 (22-30) mmol/L Anion Gap 16.2 H (5-15) MEQ/L BUN 16 (9-20) mg/dL Creatinine 1.22 (0.66-1.25) mg/dL Estimated GFR 66.2 ML/MIN Glucose 112 H (74-106) mg/dL Lactic Acid 2.0 (0.4-2.0) Uric Acid (3.5-7.2) mg/dL Calcium 8.7 (8.4-10.2) mg/dL Total Bilirubin 1.20 (0.2-1.3) mg/dL AST 64 H (17-59) U/L ALT 49 (0-50) U/L Alkaline Phosphatase 112 (38-126) U/L Serum Total Protein 8.5 H (6.3-8.2) g/dL Albumin 4.9 (3.5-5.0) g/dL Procalcitonin (0.030-0.080) ng/mL - Progress Progress: pain not gone completely Progress Note: 01/05/25 02:10 64-year-old is evaluated in the ER for left elbow swelling redness and pain without any fall or trauma. Highly suspicious for septic joint/bursitis/soft tissue infection/cellulitis Patient is given symptomatic treatment, on reevaluation is feeling better but still in pain and restricted range of motion. Workup showed white count of 15, lactate of 2.0,, X-rays elbow did not show any obvious fracture, does have soft tissue swelling reviewed by me with pending official read. I have discussed with Dr. Cruz orthopedic surgeon, recommended IV antibiotics and admission to hospitalist service in consultation with orthopedic surgery. I have shared the results of workup with patient and plan of admission which he understands and agrees. Patient is started on clindamycin and meropenem. 01/05/25 03:28 X-rays showed indeterminate fracture olecranon and soft tissue swelling. Discussed with Dr. Richards and patient is being admitted. Complexity of problem addressed: High acuity Complexity of data reviewed/analyzed: Moderate Risk of complication/morbidity/mortality associated with current condition: High Discussed with Dr.: Other (Dr. Cruz orthopedic surgeon/Dr. Richards hospitalist) Will see patient in: hospital (observation) Counseled pt/family regarding: lab results, diagnosis, need for follow-up, rad results Medical Desision Making - Discussion of managment Care discussed with:: specialist Reviewed:: Test results Agreed on:: Treatment plan Will see patient: in hospital (Dr. Cruz and Dr. Richards) - Diagnostic Testing Diagnostic test were ordered, analyzed, and reviewed by me: Yes Radiological Interpretation: Interpreted by me, Reviewed by me, Teleradiologist Report - Risk of complications The pt has a mod risk of morbidity or mortality based on: Need for prescription drug management The pt has a high risk of morbidity or mortality based on: Decision regarding hospitilization or escalation of hosp level of care - Departure Departure Disposition: Observation Clinical Impression: Cellulitis of left elbow Condition: Stable Critical Care Time: No
[2025-01-05] MEDS ORDERED: Merrem IV ONE (02:16)
[2025-01-05] MEDS ORDERED: CLINDAMYCIN-D5W 600 MG/50 ML*** 600 MG/50 ML BAG IV ONE (02:17)
[2025-01-05] MEDS ORDERED: Sodium Chloride 100ML MINI-BAG PLUS 100 ML IV ONE (02:17)
[2025-01-05] MEDS: CLINDAMYCIN-D5W 600 MG/50 ML*** 600 MG/50 ML BAG IV STA (02:28)
[2025-01-05] MEDS: Merrem 1 GM in Sodium Chloride 100ML MINI-BAG PLUS 100 ML IV ONE (02:29)
[2025-01-05] MEDS ORDERED: xanAX 0.5 MG ONE (03:00)
--- NOTE | 2025-01-05 03:05 | XRAY ---
CLINICAL HISTORY: swelling/bursitis COMPARISON: No prior studies available for comparison. TECHNIQUE: X-ray images of the left elbow were obtained in anteroposterior (AP), lateral, and oblique projections. FINDINGS: Bone Structure: Multiple enthesophytes are noted. Indeterminate age fracture is noted at the olecranon enthesophytes surrounded by soft tissue swelling. An abnormal bowing of the humerus and an abnormal shape of the medial epicondyle noted on the frontal and oblique views only could be projectional. Well-corticated bone is noted at the lateral humeral epicondyles, which could represent detached enthesophyte/osteophyte versus ligamentous calcification. Otherwise, no acute displaced fractures or dislocations. Joint Spaces: Joint spaces are preserved. No evidence of joint effusion or subluxation. Soft Tissues: Soft tissue thickening adjacent to the olecranon process is noted. IMPRESSION: 1. Olecranon enthesophyte with a suspected indeterminate age fracture, associated with surrounding soft tissue swelling. 2. Otherwise, no acute displaced fractures or dislocations. 3. Multiple enthesophytes. Well-corticated bone is noted adjacent to the medial epicondyle, which could represent detached enthesophyte versus ligamentous calcification. Clinical correlation is advised. 4. Abnormal shape of the distal humerus on the frontal and oblique views. Clinical correlation is advised. Disclaimer: A subtle bone abnormality or fracture may not be readily apparent on X-rays, thus clinical correlation and further imaging including follow-up CT, MRI, or follow-up X-rays are advised as needed. Electronically Signed by: David Garcia MD. (01/05/2025 03:01:07 EDT)
[2025-01-05] MEDS: xanAX 0.5 MG PO ONE (03:06)
[2025-01-05] MEDS: Nicoderm CQ 21 MG TOP STA (03:10)
[2025-01-05] MEDS: Sodium Chloride 0.9% 1000 ML 1,000 ML IV SCH (04:03)
[2025-01-05] MEDS ORDERED: HUMALOG SQ PRN (05:11)
[2025-01-05] MEDS ORDERED: VANCOCIN INJECTION*** 1 GM in Sodium Chloride 0.9% 250 ML 250 ML IV SCH (05:30)
[2025-01-05] MEDS ORDERED: PHARMACY DOSING REQUIRED: VANCOMYCIN IV SCH (05:30)
[2025-01-05] MEDS: MERREM 500 MG in Sodium Chloride 100ML MINI-BAG PLUS 100 ML IV SCH (05:52)
--- NOTE | 2025-01-05 06:03 | PCM.HP ---
History of Present Illness - Chief Complaint Chief Complaint: Elbow cellulitis Date: 01/05/25 History of Present Illness: is a 64 year old male with HTN who presents with L elbow swelling. Symptoms started all of sudden. Had same issue happen 6 years ago. Came to ED. ED doc consulted Ortho, who recommended antibiotics and admission. - Review of Systems Additional Findings: All other ROS is negative unless mentioned above. Medications & Allergies Home Medications: Home Medication List Lisinopril 20 mg [Zestril 20 MG] 1 tab PO DAILY 11/10/21 [History Confirmed 01/04/25] ALPRAZolam [Alprazolam] 0.5 mg PO DAILY 10/26/22 [History Confirmed 01/04/25] Aspirin EC 81 mg [Ecotrin 81 mg] 81 mg PO DAILY 10/26/22 [History Confirmed 01/04/25] Chlorthalidone 25 mg PO DAILY 10/26/22 [History Confirmed 01/04/25] Hydrocodone/Acetaminophen [Hydrocodone-Acetamin 7.5-325] 1 each PO BID 10/26/22 [History Confirmed 01/04/25] Metoprolol Succinate 50 mg [Toprol Xl 50 MG] 50 mg PO HS 10/26/22 [History Confirmed 01/04/25] Allergies/Adverse Reactions: Allergies Allergy/AdvReac Type Severity Reaction Status Date / Time penicillin G Allergy Intermediate Rash Verified 01/04/25 23:52 - Past Medical History Past Medical History: Yes Neurological History: No Pertinent History ENT History: Cataracts Cardiac History: Hypertension Respiratory History: No Pertinent History, COPD, Tuberculosis, Other Endocrine Medical History: No Pertinent History Musculoskelatal History: Arthritis, Degenerative Disk Disease, Fibromyalgia, Osteoarthritis GI Medical History: No Pertinent History History: No Pertinent History Pyscho-Social History: Anxiety, Depression Male Reproductive Disorders: Prostate Problems Comment: back pain. tb is dormant - Past Surgical History Past Surgical History: Yes Neuro Surgical History: No Pertinent History Cardiac History: No Pertinent History Respiratory Surgery: No Pertinent History GI Surgical History: No Pertinent History Genitourinary Surgical Hx: No Pertinent History Musculskeletal Surgical Hx: Orthopedic Surgery Male Surgical History: No Pertinent History Other Surgical History: lt thumb, cyst removed from back - Social History Smoking Status: Current every day smoker How long have you smoked: 49 years Exposure to second hand smoke: Yes Alcohol: None Drug Use: none - Social Determinants of Health Will the patient participate in the screening: Yes Do you worry about a steady place to live?: No Do you have any problems with any of the following?: No known problems In the past 12 months,have you had to go without utilities?: No Have you or anyone in your house had to go without enough: No Transportation Issues: No Has anyone in your support network made you feel unsafe?: No Does the patient want assistance with any of the above?: No - Physical Exam Vital Signs: Vital Signs - 24 hr Temp Pulse Resp BP BP Pulse Ox 01/05/25 05:17 97.7 F 106 H 19 133/80 97 01/05/25 04:00 106 H 18 141/88 96 01/05/25 03:31 99 01/05/25 03:31 107 H 18 133/99 96 01/05/25 03:00 119 H 18 152/108 97 01/05/25 02:28 109 H 20 182/94 97 01/05/25 01:01 110 H 22 177/104 99 01/05/25 00:03 99 H 18 155/85 96 01/05/25 00:00 69 18 155/85 92 L 01/04/25 23:46 97.8 F 86 18 155/91 97 General Appearance: no apparent distress Neurologic Exam: alert, oriented x 3 Eye Exam: PERRL/EOMI, eyes nml inspection Ears, Nose, Throat Exam: normal ENT inspection, pharynx normal, moist mucous membranes Neck Exam: normal inspection, non-tender, supple, full range of motion Respiratory Exam: normal breath sounds, lungs clear Cardiovascular Exam: regular rate/rhythm, normal heart sounds Gastrointestinal/Abdomen Exam: soft, normal bowel sounds Extremity Exam: other (L elbow tender) Skin Exam: normal color, warm, dry Results - Labs Lab/Micro Results: Lab Results-Last 24 Hours 01/05/25 01/05/25 01/05/25 Range/Units 00:35 00:40 00:40 WBC 15.5 H (4.23-9.07) x10^3/uL RBC 5.05 (4.63-6.08) x10^6/uL Hgb 15.5 (13.7-17.5) g/dL Hct 45.9 (40.1-51.0) % MCV 90.9 (79.0-92.2) fL MCH 30.7 (25.7-32.2) pg MCHC 33.8 (32.3-36.5) g/dL RDW 12.6 (11.6-14.4) % Plt Count 352 H (163-337) x10^3/uL MPV 9.7 (9.4-12.4) fL Gran % 79.3 H (34.0-67.9) % Immature Gran % (Auto) 0.3 (0.001-0.429) % Nucleat RBC Rel Count 0.0 (0.00-0.2) % Eos # (Auto) 0.10 (0.04-0.54) x10^3/uL Immature Gran # (Auto) 0.05 H (0.001-0.031) x10^3u/L Absolute Lymphs (auto) 1.83 (1.32-3.57) x10^3/uL Absolute Monos (auto) 1.19 H (0.30-0.82) x10^3/uL Absolute Nucleated RBC 0.00 (0.00-0.012) x10^3u/L Lymphocytes % 11.8 L (21.8-53.1) % Monocytes % 7.7 (5.3-12.2) % Eosinophils % 0.6 L (0.8-7.0) % Basophils % 0.3 (0.2-1.2) % Absolute Granulocytes 12.30 H (1.78-5.38) x10^3/uL Basophils # 0.05 (0.01-0.08) x10^3/uL ESR (0-15) mm/hr Sodium 139 (135-145) mmol/L Potassium 3.9 (3.5-5.1) mmol/L Chloride 101 (98-107) mmol/L Carbon Dioxide 25 (22-30) mmol/L Anion Gap 16.2 H (5-15) MEQ/L BUN 16 (9-20) mg/dL Creatinine 1.22 (0.66-1.25) mg/dL Estimated GFR 66.2 ML/MIN Glucose 112 H (74-106) mg/dL Lactic Acid 2.0 (0.4-2.0) Calcium 8.7 (8.4-10.2) mg/dL Total Bilirubin 1.20 (0.2-1.3) mg/dL AST 64 H (17-59) U/L ALT 49 (0-50) U/L Alkaline Phosphatase 112 (38-126) U/L Serum Total Protein 8.5 H (6.3-8.2) g/dL Albumin 4.9 (3.5-5.0) g/dL Procalcitonin (0.030-0.080) ng/mL 01/05/25 01/05/25 Range/Units 00:40 00:40 WBC (4.23-9.07) x10^3/uL RBC (4.63-6.08) x10^6/uL Hgb (13.7-17.5) g/dL Hct (40.1-51.0) % MCV (79.0-92.2) fL MCH (25.7-32.2) pg MCHC (32.3-36.5) g/dL RDW (11.6-14.4) % Plt Count (163-337) x10^3/uL MPV (9.4-12.4) fL Gran % (34.0-67.9) % Immature Gran % (Auto) (0.001-0.429) % Nucleat RBC Rel Count (0.00-0.2) % Eos # (Auto) (0.04-0.54) x10^3/uL Immature Gran # (Auto) (0.001-0.031) x10^3u/L Absolute Lymphs (auto) (1.32-3.57) x10^3/uL Absolute Monos (auto) (0.30-0.82) x10^3/uL Absolute Nucleated RBC (0.00-0.012) x10^3u/L Lymphocytes % (21.8-53.1) % Monocytes % (5.3-12.2) % Eosinophils % (0.8-7.0) % Basophils % (0.2-1.2) % Absolute Granulocytes (1.78-5.38) x10^3/uL Basophils # (0.01-0.08) x10^3/uL ESR 37 H (0-15) mm/hr Sodium (135-145) mmol/L Potassium (3.5-5.1) mmol/L Chloride (98-107) mmol/L Carbon Dioxide (22-30) mmol/L Anion Gap (5-15) MEQ/L BUN (9-20) mg/dL Creatinine (0.66-1.25) mg/dL Estimated GFR ML/MIN Glucose (74-106) mg/dL Lactic Acid (0.4-2.0) Calcium (8.4-10.2) mg/dL Total Bilirubin (0.2-1.3) mg/dL AST (17-59) U/L ALT (0-50) U/L Alkaline Phosphatase (38-126) U/L Serum Total Protein (6.3-8.2) g/dL Albumin (3.5-5.0) g/dL Procalcitonin 0.078 (0.030-0.080) ng/mL - Radiology Impressions Radiology Exams & Impressions: Radiology Procedures Category Date Time Status ELBOW (2 VIEW) Stat Exams 01/05/25 00:23 Completed Assessment/Plan (1) Cellulitis of left elbow Current Visit: Yes Status: Acute Assessment & Plan: - XR shows olecranon fx - rios and vanc based on allergy profile - uric acid level - npo. ortho to see in am. Code(s): L03.114 - CELLULITIS OF LEFT UPPER LIMB (2) Hypertension Current Visit: Yes Status: Acute Assessment & Plan: - continue home meds Code(s): I10 - ESSENTIAL (PRIMARY) HYPERTENSION (3) COPD (chronic obstructive pulmonary disease) Current Visit: Yes Status: Acute Assessment & Plan: - stable - nebs as needed (4) On deep vein thrombosis (DVT) prophylaxis Current Visit: Yes Status: Acute Assessment & Plan: - SCDs Code(s): Z79.899 - OTHER RETIREMENT (CURRENT) DRUG THERAPY Telemedicine Encounter - Telemedicine Encounter Telemedicine Encounter: "The entirety of this encounter was performed via Telemedicine" This visit was performed using real-time audio and video connection between my location and thepatients locationwith the assistance of a surrogateat the patients location. Written or verbal consent was obtained from the patient/guardian to perform this visit using[facility]lemedicine technology. Any patient questions regarding the telemedicine interaction were answered.
[2025-01-05] MEDS ORDERED: DUONEB 0.5-3 MG/3 ml Neb IH PRN (06:06)
[2025-01-05] MEDS: NORCO 7.5/325 MG TAB PO SCH (06:13)
[2025-01-05] MEDS: ECOTRIN 81 MG PO SCH (09:04)
[2025-01-05] MEDS: Zestril 20 MG PO SCH (09:04)
[2025-01-05] MEDS: CHLORTHALIDONE PO SCH (09:04)
[2025-01-05] MEDS: VANCOMYCIN 1.5 GRAM/300 ML BAG 1.5 GM/300 ML PIGGYBACK IV SCH (09:04)
[2025-01-05] MEDS: Hydromorphone 1 mg/ml Injection IV PRN (09:05)
[2025-01-05] MEDS ORDERED: NORCO 7.5/325 MG TAB PO SCH (10:00)
[2025-01-05] MEDS: Naprosyn 500 MG PO SCH (11:26)
[2025-01-05] MEDS: NORCO 5/325 MG PO PRN (13:57)
--- NOTE | 2025-01-05 14:04 | XRAY ---
Indication: Pain and swelling 2 days. Sagittal, coronal, and axial MRI left elbow performed using T1, T2, and STIR sequences. Comparison: None Left elbow articulation intact with moderate effusion. No acute fracture, suspicious bony lesions, or abnormal bone marrow signal. Incidental small spurring posterior olecranon process and lateral epicondyle. Posterior elbow demonstrates subcutaneous soft tissue swelling/edema signal without focal solid/cystic mass or abnormal fluid collection. Triceps tendon intact without abnormal signal. Medial/lateral collateral and annular ligaments unremarkable. There is marked edema signal of the supinator muscle favoring acute strain injury. Lesser strain injury/edema signal seen proximally and distal brachialis muscle. Biceps tendon is normal in course and caliber with normal insertion radial tuberosity without abnormal signal. Impression: 1. Posterior elbow soft tissue swelling/edema without focal solid/cystic mass or abnormal fluid collection. 2. Edema signal supinator muscle and lesser degree proximal/distal brachialis muscle favoring acute strain injury. Elbow effusion presumed related. 3. Bony spurring posterior olecranon process and lateral epicondyle without abnormal MRI signal.
[2025-01-05] MEDS: Hydromorphone 1 mg/ml Injection IV ONE (16:57)
[2025-01-05 18:24] LABS: BF CLARITY CLOUDY (CLEAR); BF SPECIMEN TYPE SYNOVIAL; BF-COLOR XANTHROCHORMIC (COLORLESS)
[2025-01-05] MEDS: Toprol Xl 50 MG PO SCH (21:43)
--- NOTE | 2025-01-06 05:40 | PCM.NOTE ---
Date and Time: 01/06/25 0538 Subjective Assessment: Mr. Aguero is a 64-year-old male with a pmhx of arthritis,HTN, COPD, DDD, fibromyalgia, and depression who presented to the ED 01/05/25 with a 2- to 3-day history of worsening left elbow pain and swelling. Pain characterized as 10/10 sharp, shooting pain with increasing redness and severe discomfort with minimal movement, radiating to the hand. He denies fever, chills, numbness, or tingling but has a history of bursitis in the same elbow, previously treated with antibiotics and steroids. Orthopedics was consulted, and an MRI revealed posterior elbow soft tissue swelling and edema without focal mass or abnormal fluid collection, with associated edema in the supinator and brachialis muscles, favoring an acute strain injury. An elbow effusion was also noted, presumed to be related, along with bony spurring of the olecranon and lateral epicondyle without abnormal MRI signal. The patient underwent bedside joint aspiration on 01/05/25, with synovial fluid sent for crystal analysis, cell count, and gram stain, with final results pending in 4-5 days. He is receiving inpatient treatment with Meropenem and Vancomycin. 01/06/25: Met and examine patient bedside. Endorses improved left elbow pain, swelling, and mobility. Synovial fluid analysis suggests an acute gout flare, and colchicine has been initiated. Orthopedics advises continuing antibiotics for concurrent infection coverage. - Review of Systems Constitutional: No Symptoms Eyes: No Symptoms Ears, Nose, & Throat: No Symptoms Respiratory: No Symptoms Cardiac: No Symptoms Abdominal/Gastrointestinal: No Symptoms Genitourinary Symptoms: No Symptoms Musculoskeletal: Joint Pain (Left elbow), Joint Swelling (left elbow) Neurological: No Symptoms Psychological: No Symptoms Endocrine: No Symptoms Hematologic/Lymphatic: No Symptoms Immunological/Allergic: No Symptoms Objective Exam General Appearance: no apparent distress Neurologic Exam: alert, oriented x 3, cooperative Skin Exam: normal color, warm, dry Eye Exam: PERRL Ears, Nose, Throat Exam: normal ENT inspection Neck Exam: normal inspection Respiratory Exam: normal breath sounds, lungs clear Cardiovascular Exam: regular rate/rhythm, normal heart sounds Gastrointestinal/Abdomen Exam: soft, normal bowel sounds Extremity Exam: joint swelling (Left elbow) Back Exam: normal inspection Male Genitalia Exam: deferred Rectal Exam: deferred Objective Data Vital Signs: Vital Signs - 24 hr Temp Pulse Resp BP Pulse Ox 01/06/25 04:00 97.9 F 67 18 110/59 93 L 01/05/25 23:57 97.8 F 85 18 116/56 94 L 01/05/25 20:13 97.6 F 97 H 20 112/67 96 01/05/25 16:00 97.7 F 84 17 133/84 96 01/05/25 12:00 97.7 F 96 H 16 124/69 99 01/05/25 07:57 97.6 F 109 H 17 143/81 91 L 01/05/25 07:19 110 H 16 93 L Pain Assessment - Last Documented Pain Intensity 5 Pain Scale Used FLACC Intake and Output: Intake & Output 01/03/25 01/04/25 01/05/25 01/06/25 11:59 11:59 11:59 11:59 Intake Total 720 Output Total 350 600 Balance -350 120 Weight 84.5 kg Lab Results: Lab Results-Last 24 Hours 01/05/25 01/05/25 01/05/25 Range/Units 01:00 07:38 11:49 Specimen Type POC Glucometer 116 H 96 (74 to 106) mg/dL Hemoglobin A1c (4.5-6.0) % Uric Acid 8.6 H (3.5-7.2) mg/dL Fluid Color (COLORLESS) Fluid Clarity (CLEAR) Fluid WBC (Auto) u/L Fluid RBC (Auto) x10^6u/L Fld Polynuclear WBCs % % Fl Mononuclear % Auto % 01/05/25 01/05/25 01/05/25 Range/Units 13:16 16:56 17:00 Specimen Type SYNOVIAL POC Glucometer 107 H (74 to 106) mg/dL Hemoglobin A1c 6.04 H (4.5-6.0) % Uric Acid (3.5-7.2) mg/dL Fluid Color XANTHROCHORMIC A (COLORLESS) Fluid Clarity CLOUDY A (CLEAR) Fluid WBC (Auto) 741209.000 u/L Fluid RBC (Auto) 0.010 x10^6u/L Fld Polynuclear WBCs % 97.900 % Fl Mononuclear % Auto 2.100 % 01/05/25 Range/Units 22:19 Specimen Type POC Glucometer 102 (74 to 106) mg/dL Hemoglobin A1c (4.5-6.0) % Uric Acid (3.5-7.2) mg/dL Fluid Color (COLORLESS) Fluid Clarity (CLEAR) Fluid WBC (Auto) u/L Fluid RBC (Auto) x10^6u/L Fld Polynuclear WBCs % % Fl Mononuclear % Auto % Radiology Exams: Radiology Procedures Category Date Time Status ELBOW (2 VIEW) Stat Exams 01/05/25 00:23 Completed MRI UPPER EXT W/O CONTRAST [MRI] Stat Exams 01/05/25 09:19 Completed Assessment/Plan (1) Cellulitis of left elbow Current Visit: Yes Status: Acute Assessment & Plan: - MRI revealed posterior elbow soft tissue swelling and edema without focal mass or abnormal fluid collection, with associated edema in the supinator and brachialis muscles, favoring an acute strain injury. An elbow effusion was also noted, presumed to be related, along with bony spurring of the olecranon and lat eral epicondyle without abnormal MRI signal. - Continue Merem and vanc based on allergy profile -Bedside joint aspiration performed 01/05/25 - fluid testing pending -Synovial fluid analysis suggests an acute gout flare- colchicine has been initiated - uric acid level reviewed and mildly elevated -Ortho following, discussed case- agree with plan for continued abx for concurrent infection coverage -CMP/CBC reviewed and unremarkable Code(s): L03.114 - CELLULITIS OF LEFT UPPER LIMB (2) COPD (chronic obstructive pulmonary disease) Current Visit: Yes Status: Acute Assessment & Plan: - stable - nebs as needed (3) Hypertension Current Visit: Yes Status: Acute Assessment & Plan: - continue home meds Code(s): I10 - ESSENTIAL (PRIMARY) HYPERTENSION (4) On deep vein thrombosis (DVT) prophylaxis Current Visit: Yes Status: Acute Assessment & Plan: -SCD for now- consider lovenox once Ortho decides if surgical intervention is needed Code(s): Z79.899 - OTHER [facility] (CURRENT) DRUG THERAPY
[2025-01-06 05:41] LABS: Hematocrit 41.9 % (40.1-51.0); Hemoglobin 13.9 g/dL (13.7-17.5); Mean Cell Volume 92.3 fL (79.0-92.2); Mean Corpuscular Hemoglobin 30.6 pg (25.7-32.2); Mean Corpuscular Hgb Concent. 33.2 g/dL (32.3-36.5); Mean Platelet Volume 10.1 fL (9.4-12.4); Platelet Count 289 x10^3/uL (163-337); Red Blood Count 4.54 x10^6/uL (4.63-6.08); Red Cell Distribution Width 12.8 % (11.6-14.4); White Blood Count 8.6 x10^3/uL (4.23-9.07)
[2025-01-06 05:59] LABS: Calcium 7.8 mg/dL (8.4-10.2); Creatinine 1 1.17 mg/dL (0.66-1.25); EST GLOMERULAR FILTRATION RATE 69.6 ML/MIN; Potassium 3.9 mmol/L (3.5-5.1)
--- NOTE | 2025-01-06 08:52 | PCM.NOTE ---
Date and Time: 01/06/25 0842 Objective Data Vital Signs: Vital Signs - 24 hr Temp Pulse Resp BP Pulse Ox 01/06/25 04:00 97.9 F 67 18 110/59 93 L 01/05/25 23:57 97.8 F 85 18 116/56 94 L 01/05/25 20:13 97.6 F 97 H 20 112/67 96 01/05/25 16:00 97.7 F 84 17 133/84 96 01/05/25 12:00 97.7 F 96 H 16 124/69 99 Pain Assessment - Last Documented Pain Intensity 5 Pain Scale Used 0-10 Pain Scale Intake and Output: Intake & Output 01/03/25 01/04/25 01/05/25 01/06/25 11:59 11:59 11:59 11:59 Intake Total 720 Output Total 350 1400 Balance -350 -680 Weight 84.5 kg Lab Results: Lab Results-Last 24 Hours 01/05/25 01/05/25 01/05/25 Range/Units 01:00 11:49 13:16 Specimen Type WBC (4.23-9.07) x10^3/uL RBC (4.63-6.08) x10^6/uL Hgb (13.7-17.5) g/dL Hct (40.1-51.0) % MCV (79.0-92.2) fL MCH (25.7-32.2) pg MCHC (32.3-36.5) g/dL RDW (11.6-14.4) % Plt Count (163-337) x10^3/uL MPV (9.4-12.4) fL Sodium (135-145) mmol/L Potassium (3.5-5.1) mmol/L Chloride (98-107) mmol/L Carbon Dioxide (22-30) mmol/L Anion Gap (5-15) MEQ/L BUN (9-20) mg/dL Creatinine (0.66-1.25) mg/dL Estimated GFR ML/MIN Glucose (74-106) mg/dL POC Glucometer 96 (74 to 106) mg/dL Hemoglobin A1c 6.04 H (4.5-6.0) % Uric Acid 8.6 H (3.5-7.2) mg/dL Calcium (8.4-10.2) mg/dL Fluid Color (COLORLESS) Fluid Clarity (CLEAR) Fluid WBC (Auto) u/L Fluid RBC (Auto) x10^6u/L Fld Polynuclear WBCs % % Fl Mononuclear % Auto % 01/05/25 01/05/25 01/05/25 Range/Units 16:56 17:00 22:19 Specimen Type SYNOVIAL WBC (4.23-9.07) x10^3/uL RBC (4.63-6.08) x10^6/uL Hgb (13.7-17.5) g/dL Hct (40.1-51.0) % MCV (79.0-92.2) fL MCH (25.7-32.2) pg MCHC (32.3-36.5) g/dL RDW (11.6-14.4) % Plt Count (163-337) x10^3/uL MPV (9.4-12.4) fL Sodium (135-145) mmol/L Potassium (3.5-5.1) mmol/L Chloride (98-107) mmol/L Carbon Dioxide (22-30) mmol/L Anion Gap (5-15) MEQ/L BUN (9-20) mg/dL Creatinine (0.66-1.25) mg/dL Estimated GFR ML/MIN Glucose (74-106) mg/dL POC Glucometer 107 H 102 (74 to 106) mg/dL Hemoglobin A1c (4.5-6.0) % Uric Acid (3.5-7.2) mg/dL Calcium (8.4-10.2) mg/dL Fluid Color XANTHROCHORMIC A (COLORLESS) Fluid Clarity CLOUDY A (CLEAR) Fluid WBC (Auto) 489065.000 u/L Fluid RBC (Auto) 0.010 x10^6u/L Fld Polynuclear WBCs % 97.900 % Fl Mononuclear % Auto 2.100 % 01/06/25 01/06/25 01/06/25 Range/Units 05:37 05:37 07:23 Specimen Type WBC 8.6 (4.23-9.07) x10^3/uL RBC 4.54 L (4.63-6.08) x10^6/uL Hgb 13.9 (13.7-17.5) g/dL Hct 41.9 (40.1-51.0) % MCV 92.3 H (79.0-92.2) fL MCH 30.6 (25.7-32.2) pg MCHC 33.2 (32.3-36.5) g/dL RDW 12.8 (11.6-14.4) % Plt Count 289 (163-337) x10^3/uL MPV 10.1 (9.4-12.4) fL Sodium 137 (135-145) mmol/L Potassium 3.9 (3.5-5.1) mmol/L Chloride 106 (98-107) mmol/L Carbon Dioxide 22 (22-30) mmol/L Anion Gap 13.0 (5-15) MEQ/L BUN 12 (9-20) mg/dL Creatinine 1.17 (0.66-1.25) mg/dL Estimated GFR 69.6 ML/MIN Glucose 110 H (74-106) mg/dL POC Glucometer 95 (74 to 106) mg/dL Hemoglobin A1c (4.5-6.0) % Uric Acid (3.5-7.2) mg/dL Calcium 7.8 L (8.4-10.2) mg/dL Fluid Color (COLORLESS) Fluid Clarity (CLEAR) Fluid WBC (Auto) u/L Fluid RBC (Auto) x10^6u/L Fld Polynuclear WBCs % % Fl Mononuclear % Auto % Radiology Exams: Radiology Procedures Category Date Time Status ELBOW (2 VIEW) Stat Exams 01/05/25 00:23 Completed MRI UPPER EXT W/O CONTRAST [MRI] Stat Exams 01/05/25 09:19 Completed
[2025-01-06] MEDS: xanAX 0.5 MG PO PRN (10:24)
[2025-01-06] MEDS: NON-FORMULARY ITEM PO ONE (10:25)
[2025-01-06] MEDS: NON-FORMULARY ITEM PO SCH (11:28)
[2025-01-06] MEDS: Nicoderm CQ 21 MG TOP SCH (15:27)
--- NOTE | 2025-01-07 05:34 | PCM.NOTE ---
Date and Time: 01/07/25 0533 Subjective Assessment: Mr. Aguero is a 64-year-old male with a pmhx of arthritis,HTN, COPD, DDD, fibromyalgia, and depression who presented to the ED 01/05/25 with a 2- to 3-day history of worsening left elbow pain and swelling. Pain characterized as 10/10 sharp, shooting pain with increasing redness and severe discomfort with minimal movement, radiating to the hand. He denies fever, chills, numbness, or tingling but has a history of bursitis in the same elbow, previously treated with antibiotics and steroids. Orthopedics was consulted, and an MRI revealed posterior elbow soft tissue swelling and edema without focal mass or abnormal fluid collection, with associated edema in the supinator and brachialis muscles, favoring an acute strain injury. An elbow effusion was also noted, presumed to be related, along with bony spurring of the olecranon and lateral epicondyle without abnormal MRI signal. The patient underwent bedside joint aspiration on 01/05/25, with synovial fluid sent for crystal analysis, cell count, and gram stain, with final results pending in 4-5 days. He is receiving inpatient treatment with Meropenem and Vancomycin. 01/06/25: Met and examine patient bedside. Endorses improved left elbow pain, swelling, and mobility. Synovial fluid analysis suggests an acute gout flare, and colchicine has been initiated. Orthopedics advises continuing antibiotics for concurrent infection coverage. Objective Data Vital Signs: Vital Signs - 24 hr Temp Pulse Resp BP Pulse Ox 01/07/25 00:00 16 01/06/25 20:00 97.3 F 79 16 122/73 97 01/06/25 16:00 97.9 F 80 20 102/65 97 01/06/25 12:00 97.5 F 82 20 112/71 93 L 01/06/25 08:00 97.7 F 64 18 131/87 93 L Pain Assessment - Last Documented Pain Intensity 0 Pain Scale Used 0-10 Pain Scale Intake and Output: Intake & Output 01/04/25 01/05/25 01/06/25 01/07/25 11:59 11:59 11:59 11:59 Intake Total 720 480 Output Total 350 1400 Balance -350 -680 480 Weight 84.5 kg Lab Results: Lab Results-Last 24 Hours 01/06/25 01/06/25 01/06/25 Range/Units 05:37 05:37 07:23 WBC 8.6 (4.23-9.07) x10^3/uL RBC 4.54 L (4.63-6.08) x10^6/uL Hgb 13.9 (13.7-17.5) g/dL Hct 41.9 (40.1-51.0) % MCV 92.3 H (79.0-92.2) fL MCH 30.6 (25.7-32.2) pg MCHC 33.2 (32.3-36.5) g/dL RDW 12.8 (11.6-14.4) % Plt Count 289 (163-337) x10^3/uL MPV 10.1 (9.4-12.4) fL Sodium 137 (135-145) mmol/L Potassium 3.9 (3.5-5.1) mmol/L Chloride 106 (98-107) mmol/L Carbon Dioxide 22 (22-30) mmol/L Anion Gap 13.0 (5-15) MEQ/L BUN 12 (9-20) mg/dL Creatinine 1.17 (0.66-1.25) mg/dL Estimated GFR 69.6 ML/MIN Glucose 110 H (74-106) mg/dL POC Glucometer 95 (74 to 106) mg/dL Calcium 7.8 L (8.4-10.2) mg/dL 01/06/25 01/06/25 Range/Units 11:47 16:21 WBC (4.23-9.07) x10^3/uL RBC (4.63-6.08) x10^6/uL Hgb (13.7-17.5) g/dL Hct (40.1-51.0) % MCV (79.0-92.2) fL MCH (25.7-32.2) pg MCHC (32.3-36.5) g/dL RDW (11.6-14.4) % Plt Count (163-337) x10^3/uL MPV (9.4-12.4) fL Sodium (135-145) mmol/L Potassium (3.5-5.1) mmol/L Chloride (98-107) mmol/L Carbon Dioxide (22-30) mmol/L Anion Gap (5-15) MEQ/L BUN (9-20) mg/dL Creatinine (0.66-1.25) mg/dL Estimated GFR ML/MIN Glucose (74-106) mg/dL POC Glucometer 104 124 H (74 to 106) mg/dL Calcium (8.4-10.2) mg/dL Radiology Exams: Radiology Procedures Category Date Time Status MRI UPPER EXT W/O CONTRAST [MRI] Stat Exams 01/05/25 09:19 Completed Multi-Disciplinary Progress Notes: Multi-Disciplinary Progress Notes 01/06/25 11:30 (created 01/06/25 13:02) Case Management Note by Natividad Hwang S/W PATIENT- HE CONTINUES TO PLAN TO DC HOME TO HIS PLF WITH HIS SIG OTHER TO ASSIST HIM. HE DENIES ANY NEW NEEDS AT THIS TIME Initialized on 01/06/25 13:02 - END OF NOTE Assessment/Plan (1) Cellulitis of left elbow Current Visit: Yes Status: Acute Assessment & Plan: - MRI revealed posterior elbow soft tissue swelling and edema without focal mass or abnormal fluid collection, with associated edema in the supinator and brachialis muscles, favoring an acute strain injury. An elbow effusion was also noted, presumed to be related, along with bony spurring of the olecranon and lateral epicondyle without abnormal MRI signal. - Continue Merem and vanc based on allergy profile -Bedside joint aspiration performed 01/05/25 - fluid testing pending -Synovial fluid analysis suggests an acute gout flare- colchicine has been initiated - uric acid level reviewed and mildly elevated -Ortho following, discussed case- agree with plan for continued abx for concurrent infection coverage -CMP/CBC reviewed and unremarkable Code(s): L03.114 - CELLULITIS OF LEFT UPPER LIMB (2) COPD (chronic obstructive pulmonary disease) Current Visit: Yes Status: Acute Assessment & Plan: - stable - nebs as needed (3) Hypertension Current Visit: Yes Status: Acute Assessment & Plan: - continue home meds Code(s): I10 - ESSENTIAL (PRIMARY) HYPERTENSION (4) On deep vein thrombosis (DVT) prophylaxis Current Visit: Yes Status: Acute Assessment & Plan: -SCD for now Code(s): Z79.899 - 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
[2025-01-07 05:39] VITALS: PULSE 69; RESP 18
[2025-01-07 08:23] LABS: Absolute Neutrophil Ct (ANC) 5.82 x10^3/uL (1.78-5.38); BASOPHIL % 0.5 % (0.2-1.2); Basophil (Absolute #) 0.05 x10^3/uL (0.01-0.08); Eosinophil % 3.5 % (0.8-7.0); Eosinophil (Absolute #) 0.33 x10^3/uL (0.04-0.54); Hematocrit 41.9 % (40.1-51.0); Hemoglobin 14.1 g/dL (13.7-17.5); IMMATURE GRAN # 0.03 x10^3u/L (0.001-0.031); IMMATURE GRAN % 0.3 % (0.001-0.429); Lymphocyte (Absolute #) 2.27 x10^3/uL (1.32-3.57); Lymphocytes % 24.1 % (21.8-53.1); Mean Cell Volume 91.5 fL (79.0-92.2); Mean Corpuscular Hemoglobin 30.8 pg (25.7-32.2); Mean Corpuscular Hgb Concent. 33.7 g/dL (32.3-36.5); Monocyte (Absolute #) 0.91 x10^3/uL (0.30-0.82); Monocytes % 9.7 % (5.3-12.2); Neutrophil % 61.9 % (34.0-67.9); Platelet Count 321 x10^3/uL (163-337); Red Blood Count 4.58 x10^6/uL (4.63-6.08); Red Cell Distribution Width 12.6 % (11.6-14.4); White Blood Count 9.4 x10^3/uL (4.23-9.07)
[2025-01-07 08:36] LABS: ALBUMIN 3.8 g/dL (3.5-5.0); ANION GAP 13.7 MEQ/L (5-15); BILIRUBIN,TOTAL 0.6 mg/dL (0.2-1.3); Calcium 8.6 mg/dL (8.4-10.2); Creatinine 1 1.03 mg/dL (0.66-1.25); EST GLOMERULAR FILTRATION RATE 81.1 ML/MIN; Potassium 4.1 mmol/L (3.5-5.1); Total Protein 7.1 g/dL (6.3-8.2)
--- NOTE | 2025-01-07 09:12 | PROG NOTE ---
CHIEF COMPLAINT: Left elbow pain. SUBJECTIVE: This patient was admitted early yesterday morning with left elbow pain and swelling. He had a history of having a similar episode years ago that was treated with antibiotics and steroids. He does not have a known history of gout. He had an MRI scan showing an elbow effusion with some soft tissue swelling as well. We performed an aspirate yesterday, obtaining approximately 8 mL of fluid which was sent to the lab. Preliminary results have come back including cell count and Gram stain. The crystal exam has not returned yet. Patient states symptoms are much improved today. He has less swelling, less pain, and improved range of motion left elbow. OBJECTIVE: VITAL SIGNS: Afebrile. Vital signs stable. GENERAL: Patient is awake, alert, and oriented. EXTREMITIES: Left elbow exam reveals persistent swelling and warmth, skin wrinkles are appearing suggesting diminishment of swelling. He can now pronate and supinate forearm without pain. He can flex and extend elbow with minimal pain. He achieves near full extension and can flex 100 degrees. He is dry cans back tender over the anterolateral aspect of the elbow. He has no tenderness posteriorly or medially. LABORATORY: Cell count 110,620. Gram stain no organisms seen. Crystals pending. This is a send out exam. Morning blood work WBC 8.6, hemoglobin 13.9, hematocrit 41.9. Calcium 7.8, sodium 137, potassium 3.9, chloride 106, BUN 12, creatinine 1.17. ASSESSMENT: Left elbow effusion with soft tissue inflammatory synovitis. 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 We will initiate treatment with colchicine, continue IV antibiotics currently, monitor for improvement, will keep patient for observation one additional day but at this time, surgery is felt to not be necessary.
--- NOTE | 2025-01-07 09:19 | OP ---
SURGERY DATE/TIME: 01/05/2025 [id number] PREOPERATIVE DIAGNOSIS: Left elbow effusion, possible septic joint. POSTOPERATIVE DIAGNOSIS: Left elbow effusion, possible septic joint. PROCEDURE: Aspiration medium joint, left elbow. SURGEON: José Cruz MD. INDICATIONS: This patient was admitted early this morning with chief complaint of left elbow pain and swelling that started in the past 36 hours. Symptoms arose insidiously. He reports having a similar episode years ago that was not quite as severe and resolved with medication. He was evaluated initially and had swelling in an unusual location being that it was mostly lateral and posterolateral whereas posteriorly he had minimal swelling. This was not felt to represent a typical bursitis. Therefore, we ordered an MRI scan. The MRI scan showed joint effusion as well as some soft tissue swelling in the anterior aspect of the elbow. We recommended joint aspiration for diagnostic purposes. Consent was obtained. DESCRIPTION OF PROCEDURE AND FINDINGS: The patient was supine in bed. He was given 1 mg of Dilaudid. I palpated the bony landmarks of the lateral elbow. His radiocapitellar articulation was palpable and he had swelling and tenderness at that area, but it got more significant slightly posterior to this. We injected 2 mL of 1% Xylocaine in a subcutaneous plane with a 25-gauge needle, after Betadine prep. Five minutes were allowed for this to take effect. After that, we introduced an 18-gauge needle with 10 mL syringe through the same approach, after Betadine prep, and were able to aspirate 8 mL of thick, greenish-yellow fluid. This fluid was then placed into three separate containers, including a purple top tube and sterile specimen container. A Band-Aid was applied. He tolerated the procedure well. Fluid sent to the lab for analysis.
--- NOTE | 2025-01-07 09:22 | CONS ---
DATE OF CONSULT: 01/05/2025 REASON FOR CONSULT: Left elbow pain. HISTORY OF PRESENT ILLNESS: This 64-year-old male came in to the emergency room late last night with a chief complaint of left elbow pain that started about a day and a half ago. He reported no injury. He simply had insidious onset of progressive left elbow pain, swelling, limited mobility, tenderness to touch. He reported that he had, had a similar episode in the past that was treated with medicine including antibiotics and steroids, no surgery was employed. He denies having a known history of gout. He was admitted to the hospitalist service and placed on IV antibiotics. He was admitted this morning after 2 a.m. and by the time he was seen at 8:30 a.m. he reported improvement in symptoms although still ongoing pain. PAST MEDICAL HISTORY: Significant for hypertension, arthritis, degenerative disc disease, fibromyalgia, osteoarthritis. PAST SURGICAL HISTORY: Positive for surgery on left thumb. HOME MEDICATIONS: Lisinopril, alprazolam, aspirin, chlorthalidone, hydrocodone, metoprolol. ALLERGIES: PENICILLIN. SOCIAL HISTORY: States he is but does not live with his , lives with a girlfriend. He is retired, has smoked for 49 years. REVIEW OF SYSTEMS: Patient denies history of gout but does state he has a trigger finger of the left hand which has prevented him from straightening that finger for about 10 years. LAB DATA AND TESTS: WBC count 15.5, platelet count 352, granulocytes 79.3%. Sodium 139, potassium 3.9, chloride 101, carbon dioxide 25, glucose 112. Blood cultures obtained and pending. Uric acid level drawn but pending. X-rays left elbow show soft tissue swelling, mild DJD, large posterior olecranon spur. PHYSICAL EXAMINATION: VITAL SIGNS: Temperature 97.7, pulse 106, respiration 19, pulse ox 97. GENERAL: The patient is arousable, alert, oriented, conversant. EXTREMITIES: Left upper extremity exam: There was a fixed flexion deformity of the left 5th finger. There is no pain in the left hand or wrist. No pain in left shoulder. The left elbow has swelling over the posterolateral aspect of the elbow. This area is warm to touch although skin color is minimally reddened. He does not have tenderness over the posteromedial elbow, no ballotable fluid collection in the elbow, no discernable elbow effusion. The anterior elbow antecubital region is minimally tender. His range of motion is limited in extension, flexion, pronation, and supination. IMPRESSION: Acute onset left elbow pain and swelling. DIFFERENTIAL DIAGNOSES: Inflammatory bursitis such as gout, cellulitis, infectious bursitis, inflammatory arthropathy. PLAN: MRI scan left elbow. Continue IV antibiotics, observation.
[2025-01-07] MEDS: NON-FORMULARY ITEM PO SCH (09:29)
[2025-01-07 10:19] VITALS: BP 130/96; TEMP 97.1
--- NOTE | 2025-01-07 10:22 | PCM.NOTE ---
Date and Time: 01/07/25 1017 Subjective Assessment: Follow-up left elbow pain and swelling The patient was admitted 2 days ago with left elbow pain and swelling and symptoms suspicious for septic joint. An aspirate was performed 01/05. The white cell count of the aspirated fluid was 110,000, Gram stain was negative. He improved significantly by January 06. He has been on IV antibiotics Today he reports continued improvement in left elbow pain, swelling, and mobility. He is pleased with his progress. He does not have a documented known history of gout but he did have a prior episode of left elbow swelling and pain that was similar to this. That episode occurred several years ago and he states that it resolved while being treated with antibiotics and steroids. Objective Exam General Appearance: no apparent distress Neurologic Exam: normal mood/affect Skin Exam: warm Extremity Exam: other (Left elbow exam Left elbow remains warm over the posterior and posterior lateral elbow. The medial side and anterior sides are benign. Swelling has diminished. His range of motion has improved and now measures -10 degrees extension and 110 degrees flexion. Pronation and supination are normal.) Objective Data Vital Signs: Vital Signs - 24 hr Temp Pulse Resp BP Pulse Ox 01/07/25 04:00 97.0 F 69 18 132/82 96 01/07/25 00:00 16 01/06/25 20:00 97.3 F 79 16 122/73 97 01/06/25 16:00 97.9 F 80 20 102/65 97 01/06/25 12:00 97.5 F 82 20 112/71 93 L Pain Assessment - Last Documented Pain Intensity 2 Pain Scale Used 0-10 Pain Scale Intake and Output: Intake & Output 01/04/25 01/05/25 01/06/25 01/07/25 11:59 11:59 11:59 11:59 Intake Total 720 480 Output Total 350 1400 Balance -350 -680 480 Weight 84.5 kg Lab Results: Lab Results-Last 24 Hours 01/06/25 01/06/25 01/07/25 Range/Units 11:47 16:21 07:30 WBC (4.23-9.07) x10^3/uL RBC (4.63-6.08) x10^6/uL Hgb (13.7-17.5) g/dL Hct (40.1-51.0) % MCV (79.0-92.2) fL MCH (25.7-32.2) pg MCHC (32.3-36.5) g/dL RDW (11.6-14.4) % Plt Count (163-337) x10^3/uL MPV (9.4-12.4) fL Gran % (34.0-67.9) % Immature Gran % (Auto) (0.001-0.429) % Nucleat RBC Rel Count (0.00-0.2) % Eos # (Auto) (0.04-0.54) x10^3/uL Immature Gran # (Auto) (0.001-0.031) x10^3u/L Absolute Lymphs (auto) (1.32-3.57) x10^3/uL Absolute Monos (auto) (0.30-0.82) x10^3/uL Absolute Nucleated RBC (0.00-0.012) x10^3u/L Lymphocytes % (21.8-53.1) % Monocytes % (5.3-12.2) % Eosinophils % (0.8-7.0) % Basophils % (0.2-1.2) % Absolute Granulocytes (1.78-5.38) x10^3/uL Basophils # (0.01-0.08) x10^3/uL Sodium (135-145) mmol/L Potassium (3.5-5.1) mmol/L Chloride (98-107) mmol/L Carbon Dioxide (22-30) mmol/L Anion Gap (5-15) MEQ/L BUN (9-20) mg/dL Creatinine (0.66-1.25) mg/dL Estimated GFR ML/MIN Glucose (74-106) mg/dL POC Glucometer 104 124 H 125 H (74 to 106) mg/dL Calcium (8.4-10.2) mg/dL Total Bilirubin (0.2-1.3) mg/dL AST (17-59) U/L ALT (0-50) U/L Alkaline Phosphatase (38-126) U/L Serum Total Protein (6.3-8.2) g/dL Albumin (3.5-5.0) g/dL 01/07/25 01/07/25 Range/Units 08:22 08:22 WBC 9.4 H (4.23-9.07) x10^3/uL RBC 4.58 L (4.63-6.08) x10^6/uL Hgb 14.1 (13.7-17.5) g/dL Hct 41.9 (40.1-51.0) % MCV 91.5 (79.0-92.2) fL MCH 30.8 (25.7-32.2) pg MCHC 33.7 (32.3-36.5) g/dL RDW 12.6 (11.6-14.4) % Plt Count 321 (163-337) x10^3/uL MPV 10.0 (9.4-12.4) fL Gran % 61.9 (34.0-67.9) % Immature Gran % (Auto) 0.3 (0.001-0.429) % Nucleat RBC Rel Count 0.0 (0.00-0.2) % Eos # (Auto) 0.33 (0.04-0.54) x10^3/uL Immature Gran # (Auto) 0.03 (0.001-0.031) x10^3u/L Absolute Lymphs (auto) 2.27 (1.32-3.57) x10^3/uL Absolute Monos (auto) 0.91 H (0.30-0.82) x10^3/uL Absolute Nucleated RBC 0.00 (0.00-0.012) x10^3u/L Lymphocytes % 24.1 (21.8-53.1) % Monocytes % 9.7 (5.3-12.2) % Eosinophils % 3.5 (0.8-7.0) % Basophils % 0.5 (0.2-1.2) % Absolute Granulocytes 5.82 H (1.78-5.38) x10^3/uL Basophils # 0.05 (0.01-0.08) x10^3/uL Sodium 139 (135-145) mmol/L Potassium 4.1 (3.5-5.1) mmol/L Chloride 107 (98-107) mmol/L Carbon Dioxide 22 (22-30) mmol/L Anion Gap 13.7 (5-15) MEQ/L BUN 11 (9-20) mg/dL Creatinine 1.03 (0.66-1.25) mg/dL Estimated GFR 81.1 ML/MIN Glucose 131 H (74-106) mg/dL POC Glucometer (74 to 106) mg/dL Calcium 8.6 (8.4-10.2) mg/dL Total Bilirubin 0.60 (0.2-1.3) mg/dL AST 43 (17-59) U/L ALT 40 (0-50) U/L Alkaline Phosphatase 101 (38-126) U/L Serum Total Protein 7.1 (6.3-8.2) g/dL Albumin 3.8 (3.5-5.0) g/dL Radiology Exams: Radiology Procedures Category Date Time Status MRI UPPER EXT W/O CONTRAST [MRI] Stat Exams 01/05/25 09:19 Completed Multi-Disciplinary Progress Notes: Multi-Disciplinary Progress Notes 01/07/25 09:52 Case Management Note by Natividad Hwang/Kathleen PATIENT- HE CONTINUES TO DENY ANY NEW NEEDS AT TIME OF DC. HE REPORTS HIS SIG OTHER CAN ASSIST HIM AT HOME Initialized on 01/07/25 09:52 - END OF NOTE 01/06/25 11:30 (created 01/06/25 13:02) Case Management Note by Natividad Hwang/Kathleen PATIENT- HE CONTINUES TO PLAN TO DC HOME TO HIS PLF WITH HIS SIG OTHER TO ASSIST HIM. HE DENIES ANY NEW NEEDS AT THIS TIME Initialized on 01/06/25 13:02 - END OF NOTE Assessment/Plan (1) Cellulitis of left elbow Current Visit: Yes Status: Acute Assessment & Plan: Cellulitis left elbow with intra-articular effusion status post aspiration for diagnostic purposes. It appears that his condition is due to inflammatory arthropathy secondary to gout, or other crystal induced process The crystal evaluation still has not been reported. The fluid was sent out last night and still has not been read at the reference lab. He has responded well to conservative care anticipate discharge today with colchicine, follow-up in 4 weeks Code(s): L03.114 - CELLULITIS OF LEFT UPPER LIMB
--- NOTE | 2025-01-07 11:33 | PCM.DS ---
Discharge Summary Date of Admission: 01/05/25 04:16 Date of Discharge: 01/07/25 Admitting Physician: EDUIN GEORGE MD Consults: Consults on Case 01/05/25 08:00 Consult Ortho ROUTINE Primary Care Provider: SHIVAM ORTEZ Allergies Allergies penicillin G Allergy (Intermediate, Verified 01/04/25 23:52) [facility] Hospital Summary - Hospital Course Hospital Course: Mr. Garcia is a 64-year-old male with a medical history of arthritis, hypertension, COPD, degenerative disc disease, fibromyalgia, and depression, who presented with a 2- to 3-day history of worsening left elbow pain and swelling. The pain was severe, sharp, and shooting, radiating to the hand with minimal movement, but without systemic symptoms such as fever or chills. He has a prior history of recurrent bursitis in the same elbow, treated with antibiotics and steroids. MRI findings were consistent with acute soft tissue injury, showing posterior elbow swelling, edema in the supinator and brachialis muscles, and an elbow effusion, likely related to the injury. Bony spurring of the olecranon and lateral epicondyle was noted, but no abnormal signal was present. A bedside joint aspiration was performed, and synovial fluid was sent for crystal analysis, cell count, and Gram stain, with results pending. In the interim, the patient is being treated with Meropenem and Vancomycin to cover for potential infection, colchicine for a suspected gout flare, and will continue for 48 hours on discharge. He was also started on a Medrol dose pack and naproxen for inflammation control. Orthopedic follow-up is scheduled in four weeks, at which point allopurinol will be initiated. The patient is stable for discharge and has agreed to the treatment plan. Discharge Note New Medications: Colchicine/naproxen/protonix/medrol dose pack Follow Up: Ortho 4 weeks I spent 35 minutes [id number] with the patient on the day of discharge performing discharge exam, discussing hospital stay and discharge instructions with patient and caregivers, preparation of discharge records, prescriptions & referral forms and addressing any questions/concerns the patient had as documented above. - Vitals & Intake/Output Vital Signs: Vital Signs Temperature 97.1 F 01/07/25 08:00 Pulse Rate 69 01/07/25 08:00 Respiratory Rate 18 01/07/25 08:00 Blood Pressure 130/96 01/07/25 08:00 O2 Sat by Pulse Oximetry 96 01/07/25 08:00 Intake & Output: Intake & Output 01/04/25 01/05/25 01/06/25 01/07/25 11:59 11:59 11:59 11:59 Intake Total 720 480 Output Total 350 1400 Balance -350 -680 480 Weight 84.5 kg - Lab Result Diagrams: 01/07/25 08:22 01/07/25 08:22 Lab Results-Last 24 Hrs: Lab Results-Last 24 Hours 01/06/25 01/06/25 01/07/25 Range/Units 11:47 16:21 07:30 WBC (4.23-9.07) x10^3/uL RBC (4.63-6.08) x10^6/uL Hgb (13.7-17.5) g/dL Hct (40.1-51.0) % MCV (79.0-92.2) fL MCH (25.7-32.2) pg MCHC (32.3-36.5) g/dL RDW (11.6-14.4) % Plt Count (163-337) x10^3/uL MPV (9.4-12.4) fL Gran % (34.0-67.9) % Immature Gran % (Auto) (0.001-0.429) % Nucleat RBC Rel Count (0.00-0.2) % Eos # (Auto) (0.04-0.54) x10^3/uL Immature Gran # (Auto) (0.001-0.031) x10^3u/L Absolute Lymphs (auto) (1.32-3.57) x10^3/uL Absolute Monos (auto) (0.30-0.82) x10^3/uL Absolute Nucleated RBC (0.00-0.012) x10^3u/L Lymphocytes % (21.8-53.1) % Monocytes % (5.3-12.2) % Eosinophils % (0.8-7.0) % Basophils % (0.2-1.2) % Absolute Granulocytes (1.78-5.38) x10^3/uL Basophils # (0.01-0.08) x10^3/uL Sodium (135-145) mmol/L Potassium (3.5-5.1) mmol/L Chloride (98-107) mmol/L Carbon Dioxide (22-30) mmol/L Anion Gap (5-15) MEQ/L BUN (9-20) mg/dL Creatinine (0.66-1.25) mg/dL Estimated GFR ML/MIN Glucose (74-106) mg/dL POC Glucometer 104 124 H 125 H (74 to 106) mg/dL Calcium (8.4-10.2) mg/dL Total Bilirubin (0.2-1.3) mg/dL AST (17-59) U/L ALT (0-50) U/L Alkaline Phosphatase (38-126) U/L Serum Total Protein (6.3-8.2) g/dL Albumin (3.5-5.0) g/dL 01/07/25 01/07/25 Range/Units 08:22 08:22 WBC 9.4 H (4.23-9.07) x10^3/uL RBC 4.58 L (4.63-6.08) x10^6/uL Hgb 14.1 (13.7-17.5) g/dL Hct 41.9 (40.1-51.0) % MCV 91.5 (79.0-92.2) fL MCH 30.8 (25.7-32.2) pg MCHC 33.7 (32.3-36.5) g/dL RDW 12.6 (11.6-14.4) % Plt Count 321 (163-337) x10^3/uL MPV 10.0 (9.4-12.4) fL Gran % 61.9 (34.0-67.9) % Immature Gran % (Auto) 0.3 (0.001-0.429) % Nucleat RBC Rel Count 0.0 (0.00-0.2) % Eos # (Auto) 0.33 (0.04-0.54) x10^3/uL Immature Gran # (Auto) 0.03 (0.001-0.031) x10^3u/L Absolute Lymphs (auto) 2.27 (1.32-3.57) x10^3/uL Absolute Monos (auto) 0.91 H (0.30-0.82) x10^3/uL Absolute Nucleated RBC 0.00 (0.00-0.012) x10^3u/L Lymphocytes % 24.1 (21.8-53.1) % Monocytes % 9.7 (5.3-12.2) % Eosinophils % 3.5 (0.8-7.0) % Basophils % 0.5 (0.2-1.2) % Absolute Granulocytes 5.82 H (1.78-5.38) x10^3/uL Basophils # 0.05 (0.01-0.08) x10^3/uL Sodium 139 (135-145) mmol/L Potassium 4.1 (3.5-5.1) mmol/L Chloride 107 (98-107) mmol/L Carbon Dioxide 22 (22-30) mmol/L Anion Gap 13.7 (5-15) MEQ/L BUN 11 (9-20) mg/dL Creatinine 1.03 (0.66-1.25) mg/dL Estimated GFR 81.1 ML/MIN Glucose 131 H (74-106) mg/dL POC Glucometer (74 to 106) mg/dL Calcium 8.6 (8.4-10.2) mg/dL Total Bilirubin 0.60 (0.2-1.3) mg/dL AST 43 (17-59) U/L ALT 40 (0-50) U/L Alkaline Phosphatase 101 (38-126) U/L Serum Total Protein 7.1 (6.3-8.2) g/dL Albumin 3.8 (3.5-5.0) g/dL Micro Results-Entire Visit: Microbiology 01/05/25 17:00 Gram Stain - Final Synovial Fluid Body Fluid Culture - Preliminary NO GROWTH TO DATE 01/05/25 00:40 Blood Culture - Preliminary Blood Accuchecks Date 01/07/25 - Procedures and Test Procedures and Tests throughout Hospitalization: Therapy Orders & Screens 01/05/25 05:44 OT Screen per Nursing Assess ONCE Comment: Protocol Order Physician Instructions: Greater than 3 points order OT Admission Screening Reason For Exam: Triggered on Admission Diagnosis: Elbow cellulitis Open Wound/Cellutlitis/Pressure Ulcers: Yes Acute Fx/ORIF/Change in wt bearing status: No Severe MUSCULOSKELETAL pain: No ADL Dysfunction: No Acute CVA w/Hemiparesis/Hemiplegia: No Decreased Functional Mobility/Strength: No Sprain/Strain: No Acute Post-op Mobility Dysfunction: No Total Points: 5 PT Screen per Nursing Assess ONCE Comment: Protocol Order Physician Instructions: Greater than 3 points order PT Admission Screenin Reason For Exam: Triggered on Admission Diagnosis: Elbow cellulitis Open Wound/Cellutlitis/Pressure Ulcers: Yes Acute Fx/ORIF/Change in wt bearing status: No Severe MUSCULOSKELETAL pain: No ADL Dysfunction: No Acute CVA w/Hemiparesis/Hemiplegia: No Decreased Functional Mobility/Strength: No Sprain/Strain: No Acute Post-op Mobility Dysfunction: No Total Points: 5 Smoking Cessation Education ONCE Comment: Diagnosis: Elbow cellulitis Smoking Status: Current every day smoker How long have you smoked: 49 years Have you smoked in the past 12 months: Yes Approximately how many cigarettes per day: 7-10 cig per day Do you dip or chew tobacco: No Discharge Exam General Appearance: no apparent distress Neurologic Exam: alert, oriented x 3, cooperative Eye Exam: PERRL Ears, Nose, Throat Exam: normal ENT inspection Neck Exam: normal inspection Respiratory Exam: normal breath sounds, lungs clear Cardiovascular Exam: regular rate/rhythm Gastrointestinal/Abdomen Exam: soft, normal bowel sounds Male Genitalia Exam: deferred Rectal Exam: deferred Back Exam: normal inspection Extremity Exam: inflammation (Left elbow) Skin Exam: normal color Final Diagnosis/Problem List - Final Discharge Diagnosis/Problem (1) Cellulitis of left elbow Current Visit: Yes Status: Acute Code(s): L03.114 - CELLULITIS OF LEFT UPPER LIMB (2) COPD (chronic obstructive pulmonary disease) Current Visit: Yes Status: Acute (3) Hypertension Current Visit: Yes Status: Acute Code(s): I10 - ESSENTIAL (PRIMARY) HYPERTENSION (4) On deep vein thrombosis (DVT) prophylaxis Current Visit: Yes Status: Acute Code(s): 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 - Discharge Discharge Date: 01/07/25 Disposition: Home, Self-Care Condition: Stable Prescriptions: New Colchicine 0.6 mg PO BID 2 Days #4 tablet Methylprednisolone Packet [Medrol Dosepack] 4 mg PO UD 30 Days #1 packet Naproxen 500 mg [Naprosyn 500 MG] 500 mg PO BID 30 Days #60 tablet PANTOPRAZOLE 40 mg Tablet [Protonix 40MG Tablet] 40 mg PO QAM 30 Days #30 tab Continue Lisinopril 20 mg [Zestril 20 MG] 1 tab PO DAILY ALPRAZolam [Alprazolam] 0.5 mg PO BID Hydrocodone/Acetaminophen [Hydrocodone-Acetamin 7.5-325] 1 each PO BID Chlorthalidone 25 mg PO DAILY Metoprolol Succinate 50 mg [Toprol Xl 50 MG] 50 mg PO HS Discontinued Aspirin EC 81 mg [Ecotrin 81 mg] 81 mg PO DAILY Additional Instructions: Hold aspirin until Naproxen is completed Follow up with: SHIVAM ORTEZ [Primary Care Provider] - 01/14/25 10:00 am MARÍA SMITH MD [ACTIVE STAFF] - 02/09/25 1:00 pm
[2025-01-07 11:58] VITALS: O2SAT 99
[2025-01-08] MEDS ORDERED: TROUGH DRUG LEVELS IJ ONE (07:30)
== END 2025-01-07 12:07 | disposition home or self-care (01) ==
LOC: ED 23:02 → MED SURG 01-05 04:16
PROVIDERS: ADMIT Internal Medicine; ATTEND Internal Medicine
DX: L03.114 Cellulitis of left upper limb (principal); J44.9 Chronic obstructive pulmonary disease, unspecified; I10 Essential (primary) hypertension; F17.200 Nicotine dependence, unspecified, uncomplicated; Z79.899 Other long term (current) drug therapy; Z86.718 Personal history of other venous thrombosis and embolism
CPT/HCPCS: 20605; 36415; 73070; 73218; 80048; 80053; 82947; 83036; 83605; 84145; 84550; 85025; 85027; 85652; 87040; 87070; 87205; 89051; 89060; 94760; 96374; 96375; 96376; 99221; 99285; G0378; Q3014; 99024; J1171; J2270; J2405; A9270-GY; J3370